=== PATIENT | female | born 1945 | race Caucasian/White ===

== ENCOUNTER 2025-09-13 15:15 | Emergency (ER) | payer MEDICARE, SELFPAY ==
[2025-09-13] VITALS (9 sets, daily range): BP systolic 101–132; BP diastolic 45–77; PULSE 75–81; RESP 15–20; TEMP 36.8–37; O2SAT 97–98; BMI 32.5
--- OUTSIDE RECORDS SUMMARY | 2025-09-13 15:29 | XMS_ITS | Continuity of Care Document ---
Author Organization [facility] - 2 Address [address] [facility] [place] [address] Care Team Providers Care Sofa Inspector Name Role Phone JAM GONZALEZ Primary Care Provider Unavailabl e Assessment No assessment recorded. Plan of Treatment Reminders Order Date Submit Date Provider Last Modified By Organization Details Last Modified Time Details Appointments OFFICE VISIT 2025 10:30A M Dr. Jam Gonzalez Not available Not available Not available MEDICARE ANNUAL WELLNESS 2025 09:00A M Dr. Jam Gonzalez Not available Not available Not available Lab influenz a virus A + B and SARS CoV 2, QL, SHILO+prob e, respirat ory specimen 2024 025 [id number] [facility] - 2, [address] [facility] [address] [facility] [address], [place], [address], 08/16/2025 08:40:58 Referral None recorded . Procedures None recorded . Surgeries None recorded . Imaging XR, chest, 2 view 2024 025 [facility] (Radiology), [address], [place], [address], 08/15/2025 13:24:43 Medication Orders dexameth asone 2 mg tablet 2024 025 [facility], [address] [place], [address], 08/15/2025 12:32:31 doxycycl ine hyclate 100 mg tablet 2024 025 [facility], [address] [place] [address], [id number], 08/29/2025 05:01:42 albutero l sulfate HFA 90 mcg/actu ation aerosol inhaler 2024 025 [facility] [address], [address] [place] [address], [id number], 08/15/2025 12:32:28 Patient TargetsNo targets recorded. Patient InstructionsNo instructions recorded. Reason for Referral None Reported. Results Created Date Observation Date Name Description Value Unit Range Abnormal Flag Note LastModifiedBy Organization Detail LastModifiedTime 08/15/2008/15/2025 influ toby virus A + B and SARS CoV 2, QL, SHILO+p robe, respi rator y speci men influenza virus A + B and sars cov 2 negati ve negati ve Not Available [facility] [address] [facility] [address], [place], [address], 08/15/2025 11:44:52 08/15/20 25 08/15/2025 influ toby virus A + B and SARS CoV 2, QL, SHILO+p robe, respi rator y speci men influenza A negati ve negati ve Not Available [facility] - 2 [address] [address], [place], [address], 08/15/2025 11:44:52 08/15/20 25 08/15/2025 influ toby virus A + B and SARS CoV 2, QL, SHILO+p robe, respi rator y speci men influenza B negati ve negati ve Not Available [facility] - [address] [facility] [address], [place], [address], 08/15/2025 11:44:52 08/15/20 25 08/15/2025 influ toby virus A + B and SARS CoV 2, QL, SHILO+p robe, respi rator y speci men sars antigen negati ve negati ve Not Available [facility] - [address], [place], [address], 08/15/2025 11:44:52 08/15/20 25 08/15/2025 XR, chest , 2 view Exam: 2 view chest radiog raph. [id number]. Indica tion: Shortn ess of air. Acute bronch itis. Compar mamie: Findin gs: PA and latera l views of the chest. The heart and medias tinal contou rs are normal . There is benign calcif ied lymph node in the right hilar region . The lungs are clear. No pleura l effusi on. Impres lokesh: Normal chest radiog raph. Final Signed by: Hipolito Sanabria Signed (Elect ronic Signat ure): 2024 12:22 pm Clinic radiol ogy order, confir m latera lity if needed . [facility] (Radiology) [address], [place], [address], 08/19/2025 11:05:27 Result Notes Documentation Provider Name and Address Organization Details Recorded Time Xr, Chest, 2 View : Exam: 2 view chest radiograph. [id number]. Indication: Shortness of air. Acute bronchitis. Comparison: 09/07/21 Findings: PA and lateral views of the chest. The heart and mediastinal contours are normal. There is benign calcified lymph node in the right hilar region. The lungs are clear. No pleural effusion. Impression: Normal chest radiograph. Final Signed by: Hipolito Bynum Signed (Electronic Signature): 08/15/2025 12:22 pm Clinic radiology order, confirm laterality if needed. [facility] [place] [facility] 08/19/2025 11:05:27 Problems Name Problem SNOMED Code Status Onset Date Resolution Date Notes Provider Name and Address Organization Details Recorded Time Hyperlipi demia 19125344 Active 2016 Not Available [facility] 20:21:56 Hypothyro idism 16551976 Active 2016 Not Available [facility] 1 20:21:56 Diabetes mellitus 65512860 Active 2016 saw eye doctor summer 2017 Not Available [facility] 1 20:21:56 Bilateral cataracts 03958950 Active 2016 2017 surgery Not Available [facility] 1 20:21:56 Screening for malignant neoplasm of breast Active 2016 2020 fall negative Not Available [facility] 1 20:21:56 Screening for malignant neoplasm of colon Active 2016 cologaurd negative 2015 colonosocp y 2018 Not Available [facility] 1 20:21:56 Chest pain 80128496 Active 2016 2014 negative nuclear stress Not Available [facility] 1 20:21:56 Degenerat ion of intervert ebral disc 27277836 Active 2016 lumbar disk mri 2005 Not Available [facility] 1 20:21:56 Essential hypertens ion 23722892 Active 2016 Not Available [facility] 1 20:21:56 Screening for osteoporo sis Active 2017 negative 2013 0.88 , -1.63 in 2019 -2.19 in 2021 Jam Gonzalez M.D. 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 [address] [place], [address] , [facility] 3 10:50:54 Basal cell carcinoma of skin 991630932 Active 2019 removed 2020 Not Available [facility] 1 20:21:56 Squamous cell carcinoma 518954666 Active 2019 derm 2020 Not Available [facility] 1 20:21:56 Restless legs syndrome 47439540 Active 2020 Not Available [facility] 1 20:21:56 History of polyp of colon 724112182 Active 2021 NATY servin, [facility] 2 12:06:47 Bunion 480183956 Active 2023 qualifies for diabetic shoes Jam Gonzalez M.D. [address] [place], [address] , [facility] 4 11:29:19 Notes:chronic eye infection better with steroids nasal congestion coughing start 09/18/22 Problem Notes None recorded. Procedures Surgical History Date Name Laterality Status Provider Name and Address Organization Details Recorded Time 12/02/19 23 COLONOSCOPY (SURG) completed GISSELLE SYKES [address] [place], [address], [facility] 11/30/2022 07:59:14 12/02/19 23 Screening colonoscopy completed Alhaji Hayes MD [address] [place], [address], [facility] 12/01/2022 10:35:47 12/02/19 23 COLONOSCOPY (SURG) completed JEFF BINGHAM [facility] 12/07/2022 10:11:37 07/24/20 19 COLONOSCOPY (SURG) completed SOFIYA JEAN [address], [place], [address], [facility] 07/23/2019 12:32:36 07/24/20 19 COLONOSCOPY W/LESION REMOVAL completed Ramos Parker MD [address] [facility] [address], [place], [address], [facility] 07/24/2019 09:32:00 Tubal Ligation completed NOY BONILLA N [address] [facility] [address], [place], [address], [facility] 12/06/2016 11:06:04 Hemorrhoidectomy completed NOY BOND SON [address] [facility] [address], [place], [place], [address] [place] [address], [facility] 12/06/2016 11:06:11 Knee Surgery completed [facility] 05/25/2023 10:13:00 cholecystectomy completed [place] [address] [facility] [address], [place], [address] [place] [address], [facility] 11/23/2022 10:04:56 Colonoscopy completed [place] [address] [facility] [address], [place], [address] [place] [address], [facility] 11/23/2022 10:05:14 Breast Biopsy completed [facility] 06/07/2025 10:18:50 Xcapsl ctrc rmvl cplx wo ecp completed [facility] 05/25/2023 10:12:16 Imaging Results None recorded. Procedure Notes None recorded. Medical Equipment None Reported. Allergies No known drug allergies Medications Name Sig Start Date Stop Date Status Note LastModified by Organization Details LastModified Time compounde d medicatio n Apply 1-2 grams to the affected area 3-4 times daily 06/04 completed Not Available Not Available Not Available celecoxib 200 mg capsule Take 1 capsule by mouth once daily 2024 active Not Available Not Available Not Avai lable amoxicill in 500 mg capsule Take 1 capsule every 8 hours by oral route. 01/19 completed Not Available Not Available Not Available metformin 500 mg tablet Take 1 tablet twice a day by oral route. 01/15 completed Not Available Not Available Not Available prednison e 10 mg tablet 4 pills for 2 days , 3 pills for 2 days and, 2 pills for 2 days and 1 pill for 2 days 01/08 completed Not Available Not Available Not Available doxycycli ne hyclate 100 mg capsule TAKE ONE CAPSULE BY MOUTH TWO TIMES A DAY FOR INFECTIO N UNTIL ALL ARE GONE 11/11 completed Not Available Not Available Not Available piperacil adriana-tazob actam 40.5 gram intraveno us solution Inject 3.375 g by intraven ous route. 01/09 completed Not Available Not Available Not Available ropinirol e 1 mg tablet Take 1 tablet every day by oral route at bedtime. 02/03 completed as needed Not Available Not Available Not Available albuterol sulfate 2.5 mg/3 mL (0.083 %) solution for nebulizat ion Inhale 3 mL 3 times a day by nebuliza tion route. 05/24 completed Not Available Not Available Not Available azithromy davion 250 mg tablet TAKE 2 TABLETS BY MOUTH TODAY, THEN TAKE 1 TABLET DAILY UNTIL ALL TAKEN 05/15 completed Not Available Not Available Not Available ofloxacin 0.3 % eye drops INSTILL 1 DROP INTO LEFT EYE EVERY NIGHT FOR 1 WEEK, THEN 2 TIMES WEEKLY 05/25 completed Not Available Not Available Not Available fluconazo le 150 mg tablet 03/16 completed Not Available Not Available Not Available valacyclo vir 1 gram tablet Take 1 tablet every 8 hours by oral route. 07/15 completed Not Available Not Available Not Available meloxicam 15 mg tablet Take 1 tablet every day by oral route. 07/15 completed Not Available Not Available Not Available Levaquin 750 mg tablet Take 1 tablet every day by oral route. 05/13 completed Not Available Not Available Not Available famotidin e 40 mg tablet Take 1 tablet every day by oral route as directed for 30 days. 07/15 completed Not Available Not Available Not Available Medrol (Mac) 4 mg tablets in a dose pack take as directed 12/03 completed Not Available Not Available Not Available prednison e 20 mg tablet TAKE 3 TABLETS BY MOUTH ONCE DAILY FOR 5 DAYS 12/03 completed Not Available Not Available Not Available fluoroura cil 5 % topical cream APPLY CREAM TOPICALL Y TO AFFECTED AREA TWICE DAILY FOR 2 WEEKS THEN DISCONTI NUE 03/18 completed Not Available Not Available Not Available metformin 850 mg tablet TAKE 1 TABLET BY MOUTH TWICE DAILY WITH FOOD 11/11 completed holding 07/15/21 due to diarrhea Not Available Not Available Not Available diphenoxy late-atro pine 2.5 mg-0.025 mg tablet TAKE 1 TABLET BY MOUTH THREE TIMES DAILY NEEDED FOR 3 DAYS 06/04 completed Not Available Not Available Not Available Ultram 50 mg tablet Take 1 tablet twice a day by oral route. 10/11 completed Not Available Not Available Not Available potassium chloride ER 10 mEq tablet,ex tended release Take 1 tablet by mouth twice daily 2024 active Not Available Not Available Not Avai lable sulfameth oxazole 800 mg-trimet hoprim 160 mg tablet Take 1 tablet every 12 hours by oral route. 05/25 completed Not Available Not Available Not Available levothyro xine 88 mcg tablet TAKE 1 TABLET BY MOUTH ONCE DAILY IN THE MORNING active Not Available Not Available No t Available prednisol one acetate 1 % eye drops,ann pension 09/15 completed Not Available Not Available Not Available gentamici n 0.3 % eye drops INSTILL 1 DROP INTO AFFECTED EYE(S) BY OPHTHALM IC ROUTE EVERY 4 HOURS 05/24 completed Not Available Not Available Not Available dicyclomi ne 20 mg tablet Take 1 tablet every 8 hours by oral route as needed for 10 days. 07/15 completed Not Available Not Available Not Available Flagyl 500 mg tablet Take 1 tablet 3 times a day by oral route. 05/13 completed Not Available Not Available Not Available hydrocort isone 1 % topical cream APPLY A THIN LAYER TO THE AFFECTED AREA(S) BY TOPICAL ROUTE 2 TIMES PER DAY 06/04 completed Not Available Not Available Not Available dexametha sone 2 mg tablet Take 1 tablet twice a day by oral route. 2024 active Not Available Not Available Not Avai lable oseltamiv ir 75 mg capsule 01/13 completed Not Available Not Available Not Available metformin 1,000 mg tablet Take 1 tablet twice a day by oral route for 90 days. 05/18 completed Not Available Not Available Not Available neomycin- polymyxin -dexameth 3.5 mg/mL-10, 000 unit/mL-0 .1% eye drops INSTILL 1 DROP IN THE LEFT EYE THREE TIMES DAILY FOR 7 DAYS 09/21 completed Not Available Not Available Not Available ropinirol e 0.5 mg tablet TAKE 1/2 TO 1 (ONE-GIOVANY F TO ONE) TABLET BY MOUTH ONCE DAILY AT BEDTIME NEEDED. PRN 08/15/25 active Not Available Not Available No t Available fluoromet holone 0.1 % eye drops,ann pension INSTILL 1 DROP INTO LEFT EYE TWICE A WEEK active Not Available Not Available No t Available polymyxin B sulfate 10,000 unit-trim ethoprim 1 mg/mL eye drops 1 DROP BOTH EYES EVERY DAY 12/01 completed Not Available Not Available Not Available aspirin 81 mg chewable tablet Chew 1 tablet every day by oral route. 2022 active otc Not Available Not Available Not Avai lable hydrocort isone 2.5 % topical cream APPLY CREAM TO AFFECTED AREA TWICE DAILY 06/07 completed Not Available Not Available Not Available lisinopri l 5 mg tablet TAKE 1 TABLET BY MOUTH ONCE DAILY active Not Available Not Available No t Available hydrochlo rothiazid e 25 mg tablet TAKE 1 TABLET BY MOUTH ONCE DAILY active Not Available Not Available No t Available mupirocin 2 % topical ointment APPLY OINTMENT TOPICALL Y TWICE DAILY FOR 10 DAYS 06/07 completed Not Available Not Available Not Available zolpidem 5 mg tablet TAKE 1 TABLET BY MOUTH NEEDED AT BEDTIME 04/05 completed Not Available Not Available Not Available levofloxa davion 500 mg tablet Take 1 tablet every 24 hours by oral route. 01/27 completed Not Available Not Available Not Available oxycodone -acetamin ophen 7.5 mg-325 mg tablet 01/13 completed Not Available Not Available Not Available albuterol sulfate HFA 90 mcg/actua tion aerosol inhaler Inhale 2 puffs every 4 hours by inhalati on route as needed. 2024 active Not Available Not Available Not Avai lable ketoconaz ole 2 % topical cream APPLY TO THE AFFECTED AREA(S) BY TOPICAL ROUTE ONCE DAILY 06/04 completed Not Available Not Available Not Available lisinopri l 2.5 mg tablet Take 1 tablet every day by oral route. 01/13 completed held due to low blood pressure Not Available Not Available Not Available doxycycli ne hyclate 100 mg tablet Take 1 tablet twice a day by oral route for 7 days. 08/29 completed Not Available Not Available Not Available diabetic supplies, miscellan . 09/08 completed Not Available Not Available Not Available moxifloxa davion 0.5 % eye drops one drop in left eye at hs for week and then twice weekly. 10/04 completed Not Available Not Available Not Available metformin ER 750 mg tablet,ex tended release 24 hr TAKE 1 TABLET BY MOUTH ONCE DAILY active Not Available Not Available No t Available rosuvasta tin 10 mg tablet TAKE 1 TABLET BY MOUTH ONCE DAILY active Not Available Not Available No t Available potassium chloride ER 10 mEq tablet,ex tended release(p art/cryst ) TAKE ONE TABLET BY MOUTH TWO TIMES A DAY 07/15 completed Not Available Not Available Not Available Fiber Therapy (methylce llulose) 500 mg tablet Take 2 tablets every day by oral route at bedtime for 30 days. 07/15 completed Not Available Not Available Not Available Polytrim 12/08 completed Not Available Not Available Not Available aspirin 81 mg daily 10/11 completed Not Available Not Available Not Available metronida zole 500 mg1 po Q8 hrs 05/13 completed Not Available Not Available Not Available levothyro xine 0.088 mg daily 03/16 completed Not Available Not Available Not Available hydrochlo rothiazid e 25 mg daily 03/16 completed Not Available Not Available Not Available lisinopri l 5 mg daily 03/16 completed Not Available Not Available Not Available Mucinex 1 PO BID active Not Available Not Felicita ilable Not Available Maalox Advanced 200 mg-200 mg-20 mg/5 mL oral suspensio n Take 20 mL every 6 hours by oral route as needed for 10 days. 07/15 completed Not Available Not Available Not Available GaviLyte- G 236 gram-22.7 4 gram-6.74 gram-5.86 gram oral solution MIX AND TAKE BY MOUTH DIRECTED 09/21 completed Not Available Not Available Not Available Probiotic with Prebiotic 1 billion cell-250 mg capsule Take 1 capsule every day by oral route in the morning for 30 days. 10/11 completed Not Available Not Available Not Available Suprep Bowel Prep Kit 17.5 gram-3.13 gram-1.6 gram oral solution USE DIRECTED 09/21 completed Not Available Not Available Not Available polyethyl clint glycol (bulk) 100 % powder 17 grams prn 07/15 completed Not Available Not Available Not Available potassium chloride ER 20 mEq tablet,ex tended release Take 1 tablet every day by oral route. 09/15 completed Not Available Not Available Not Available Probiotic (S.boular dii) 250 mg capsule Take 1 capsule every day by oral route. 07/15 completed Not Available Not Available Not Available molnupira vir 200 mg capsule (EUA) Take 4 capsules every 12 hours by oral route for 5 days. 11/11 completed Not Available Not Available Not Available Vitals Date Recorded Body height Body mass index (BMI) Body weight Body temperature Heart rate Oxygen saturation Respiratory rate Systolic And Diastolic Provider Name and Address Organization Details Last Updated DateTime 5 165.1 cm 31.3 kg/m2 85461.3 7 g 99.1 [degF] 77 /min 96 % 16 /min 112/58 mm[Hg] Kindra [facility] 5 11:48:19 Social History Question Answer Notes LastModified by Organizat ion Details LastModified Time Tobacco Smoking Status Former Smoker quit in 2019 [facility] servin [facility] 06/07/2025 10:17:15 Do You Have An Advance Directive? Yes Supposed To Bring In Next Time Bring In. [email or web address] Information not available 05/08/2019 What Is Your Level Of Caffeine Consumption? Occasional Teas And Cokes [email or web address] Information not available 11/23/2022 What Is Your Code Status? 0 ALIE Information not available 01/16/2023 Education Post Graduate Informatio n not available 07/05/2019 When Did You Quit Smoking? 1-5yearssincel macochayo [email or web address] Information not available 05/25/2023 Single Or Multi-level Home/work? Single Level Home Information not available 03/16/2018 Live Alone Or With Others? With Others Information not available 03/16/2018 Do You Have Thoughts Of Hurting Yourself Or Others? No Information not available 03/16/2018 Have You Fallen Within The Past Three Months? No Information not available 07/05/2019 Marital Status [email or web address] Informatio n not available 12/06/2016 Do You Have A Medical Power Of Intelligence Officer Basic? Yes Rosina Beals Is Medical [employer] Information not available 05/24/2022 What Was The Date Of Your Most Recent Tobacco Screening? 06/07/2025 Information not available 06/07/2025 What Is Your Current Pack Years? [email or web address] ars Information not available 05/25/2023 Post-op Transportation ? Yes Information not available 07/05/2019 Do You Have Smoke And Carbon Monoxide Detectors In Your Home? Yes [email or web address] Information not available 12/06/2016 At What Age Did You Start Smoking Tobacco? 42 Information not available 03/16/2018 How Much Tobacco Do You Smoke? 1 PPW Information not available 05/25/2023 Has Tobacco Cessation Counseling Been Provided? No Information not available 03/16/2018 Have You Recently Traveled Abroad? No Information not available 07/05/2019 Have You Used IV Drugs? No Information not available 10/11/2019 Using Orthotics? No Information not available 03/16/2018 Sex: Unknown Functional Status Question Answer Note LastModified by Organizat ion Details LastModified Time Do you use any illicit or recreational drugs? No Information not available 03/16/2018 What is your level of alcohol consumption? Occasional Information not available 03/16/2018 Are you able to walk independently without assistance or assistive devices? YESWOREST Information not available 03/16/2018 Are you able to care for yourself independently? Yes Information not available 03/16/2018 What is your exercise level? Moderate Information not available 03/16/2018 Mental Status None recorded. Family History Relationship Description Onset Age of this Age Resolved Age Notes LastModified by Organization Details LastModified Time Father Alzheimer's disease [email or web address] Not available 12/06 11:04:35 Mother Hypertensive disorder [email or web address] Not available 12/06 11:04:48 Mother Family history of stroke [email or web address] Not available 12/06 11:05:02 Medical History Condition Response Coronary Artery Disease N Other N Gout N Blood Diseases N Kidney Stones N Hyperthyroidism N Blood Transfusion N Breast Cancer N Lung Disease N Hypothyroidism Y Depression N COPD N Defects or Inherited Disease N Developmental or Behavioral Disorders N Breast Problem N Difficulty Swallowing N Anesthesia Complications N Anxiety Disorder N Meniere's disease N Muscle, Joint, or Bone Problems N Obesity N Vision or Eye Problems N Arthritis Y Infertility N Polyps N Mental Disorder N Cancer N Varicosities N Stroke N Endometriosis N Bladder or Kidney Problems N High Cholesterol Y Liver Disease N Headaches N Fibromyalgia N Kidney Disease N Allergies/Hayfever N Heart Problems N Ear or Hearing Problems N Hospitalizations N Thyroid Problems N GI Problems N ADD/ADHD N Eating Disorder N Skin Problems Y Anemia N MRSA exposure N Constipation N Mental Illness N Diabetes N Ovarian Cancer N Bedwetting N Seizures/Epilepsy N degenerative disc disease N Tuberculosis N AIDS/HIV N Congestive Heart Failure (CHF) N Eczema N Abuse/Domestic Violence N Diverticulitis N Asthma N Reflux/GERD N Hepatitis N Heart Disease N Pulmonary Embolism N Chronic Ear Infections N Pre-Eclampsia N Hypertension N Chicken Pox N Autism Spectrum Disorder (ASD) N Osteoporosis N Thrombophilias N Gynecological HistoryNo gynecological history recorded. Obstetrics History GPAL:G 0 P 0 0 0 0 Immunizations Vaccine Type Date Status Note Provider Nam e and Address Organization Details Recorded Time Pneumococcal conjugate PCV 13 6 completed Not Available [facility] 08/11/2021 20:21:57 Influenza, adjuvanted, trivalent, PF 5 [facility] 11:24:35 COVID-19, mRNA, LNP-S, PF, 100 mcg/0.5mL dose or 50 mcg/0.25mL dose 1 completed Not Available [facility] 08/11/2021 20:21:57 COVID-19, mRNA, LNP-S, PF, 100 mcg/0.5mL dose or 50 mcg/0.25mL dose 1 completed Not Available [facility] 08/11/2021 20:21:57 zoster recombinant 3 completed [facility]ra servin, [facility] 02/09/2023 09:49:46 influenza, unspecified formulation 3 completed [facility]ra servin, [facility] 07/04/2023 09:00:55 RSV, recombinant, protein subunit RSVpreF, adjuvant reconstituted, 0.5 mL, PF 4 completed [facility] servin, [facility] 06/19/2024 17:02:28 Influenza, adjuvanted, trivalent, PF 4 completed [facility], [facility] [facility] 06/19/2024 17:03:25 Influenza, split virus, quadrivalent, preservative 6 completed Not Available [facility] 08/11/2021 20:21:57 pneumococcal polysaccharide PPV23 9 completed Not Available [facility] 10/13/2019 02:51:32 Past Encounters Encounter ID Performer Location Encounter Start Date Encounter Closed Date Diagnosis/Indication Diagnosis SNOMED-CT Code Diagnosis ICD10 Code Diagnosis IMO Codes Diagnosis Note [id number] Jam Gonzalez M.D. [facility] - [address] [place], [place] [id number] 08/15/2025 11:29:44 08/15/2025 12:32:51 Cough 25792334 R05.9 [id number] Acute bronchitis 0090252 2 J20.9 [id number] patient has 2 days of symptoms with multiple sick contacts I am going to get a chest x-ray on her COVID and flu are negative script for albuterol low-dose dexamethas one and doxycyclin e Health Concerns Section Related Observation LastModified by Organization Detai ls LastModified Time None Recorded Concern Status LastModified by Organization Details LastModified Time None Recorded Payers Encounter Date Sequence Insurance Name Policy Number Policy Wick Covered Member ID Wick Member ID Guarantor Name 08/15/2025 1 [facility] (MEDICARE REPLACEMENT/A DVANTAGE - HMO) Yesy Santana [id number] Yesy Santana Notes Date Note Type Note Provider Name and Address Organization Details Recorded Time 08/15/2025 text/html Upper Respirator y SymptomsReported by Patient CoughReported by Patient this is a 79-year-old female with diabetes who presents with cough for 2 days with overt wheezing some production at times she is not particularly short of breath no fever she has had multiple sick contacts and her COVID and flu are negative she said she took a grandchild to the doctor who had a respiratory infection they did not give a specific diagnosis her oxygen saturation looks good this time Jam Gonzalez M.D. [address], [place], [id number], [facility] 08/15/2025 12:32:30 OBGyn Episode No OBEpisode recorded.
--- OUTSIDE RECORDS SUMMARY | 2025-09-13 15:29 | XMS_ITS | Data Portability ---
Author Organization [facility] Address [address] [place] [address] Care Team Providers Care Test Man Name Role Phone JAM GONZALEZ Primary Care Provider Unavailabl e Assessment Encounter Date Assessment Date Assessment LastModified by Organization Details LastModified Time 06/07/2025 06/07/2025 Patient presente d to office today for their Medicare Annual Wellness Visit. Education was provided on healthy nutrition, including a diet rich in fruits and vegetables, minimizing simple carbohydrates, salt, and saturated fats. Encouraged regular cardiovascular exercise such as walking at least 30 minutes daily, 5 times per week. Emphasized preventive health measures and educated pt on fall prevention and community-based lifestyle interventions to help reduce health risks and promote healthy living. Not available 05/30/2025 11:53:57 Plan of Treatment Reminders Order Date Submit [...] SHILO+prob e, respirat ory specimen 2024 025 [email or web address] [facility] - 2, [address], [place], [address], 08/16/2025 08:40:58 CMP, serum or plasma 2024 025 [facility], [address], [place], [address], 06/07/2025 12:39:03 HbA1c (hemoglo bin A1c), blood 2024 025 [facility], [address] [place] [address] [place], [address], 06/07/2025 12:45:26 microalb umin, urine 2024 025 [facility], [address] [place], [address], 06/07/2025 12:48:40 TSH, serum or plasma 2024 025 [facility], [address] [place], [address], 06/07/2025 13:15:59 T4, free, serum 2024 025 [facility], [address] [place], [address], 06/07/2025 13:43:59 HbA1c (hemoglo bin A1c), blood 2024 025 [facility], [address] [place], [address], 03/18/2025 14:09:42 CMP, serum or plasma 2024 025 [facility], [address] [place], [address], 03/18/2025 13:23:16 HbA1c (hemoglo bin A1c), blood 2024 025 [facility], [address] [place], [address], 12/03/2024 14:09:05 CBC w/ auto diff 2024 025 [facility], [address] [place], [address], 12/03/2024 13:30:38 TSH, serum or plasma 2024 [facility], [address] [place], [address], 12/03/2024 14:21:00 T4, free, serum 2024 [facility], [address] [facility] [place], [address], 12/03/2024 14:09:35 lipid panel, serum 2024 [facility], [address], [address], 12/03/2024 13:53:21 CMP, serum or plasma 2024 [facility], [address] [facility] [place], [address], 12/03/2024 13:53:15 Referral None recorded . Procedures None recorded . Surgeries None recorded . Imaging XR, chest, 2 view 2024 [facility] (Radiology), [facility] [address], [address], 08/15/2025 13:24:43 Medication Orders dexameth asone 2 mg tablet 2024 [facility], [address] [place] [address], [address], 08/15/2025 12:32:31 doxycycl ine hyclate 100 mg tablet 2024 [facility] [address], [address] [place] [address], [address], 08/29/2025 05:01:42 albutero l sulfate HFA 90 mcg/actu ation aerosol inhaler 2024 025 [facility], [address] [place] [address], [address], 08/15/2025 12:32:28 rosuvast atin 10 mg tablet 2024 025 [facility], [address] [place] [address], [address], 06/07/2025 11:19:40 ropiniro le 0.5 mg tablet [email or web address] [facility], [address] [place] [address], [address], 08/15/2025 11:45:57 Patient TargetsNo targets recorded. Patient InstructionsNo instructions recorded. Reason for Referral None Reported. Results Created Date Observation Date Name Description Value Unit Range Abnormal Flag Note LastModifiedBy Organization Detail LastModifiedTime 12/04/1912/03/2024 CBC W/ DIFF instr WBC 7 Not Available [facility] [address] [facility] [address], [place], [address], 12/03/2024 13:30:38 12/04/19 25 12/03/2024 CBC W/ DIFF WBC 7.35 x10 3.60-1 0.60 normal Not Available [facility] [address], [place], [address], 12/03/2024 13:30:38 12/04/19 25 12/03/2024 CBC W/ DIFF RBC 3.60 x10 3.80-5 .20 low Not Available [facility] [address], [place], [address], 12/03/2024 13:30:38 12/04/19 25 12/03/2024 CBC W/ DIFF HGB 12.2 g/dL 12.0-1 5.0 normal Not Available [facility] [address] [place], [address], 12/03/2024 13:30:38 12/04/19 25 12/03/2024 CBC W/ DIFF HCT 35.6 % 35.0-4 9.0 normal Not Available [facility] [address] [place], [address], 12/03/2024 13:30:38 12/04/19 25 12/03/2024 CBC W/ DIFF RDW 13.9 % 11.5-1 4.5 normal Not Available [facility] [place], [address], 12/03/2024 13:30:38 12/04/19 25 12/03/2024 CBC W/ DIFF MCH 33.9 pg 26.0-3 4.0 normal Not Available [facility] [place], [address], 12/03/2024 13:30:38 12/04/19 25 12/03/2024 CBC W/ DIFF MCHC 34.3 g/dL 32.0-3 6.0 normal Not Available [facility] [place], [address], 12/03/2024 13:30:38 12/04/19 25 12/03/2024 CBC W/ DIFF MPV 10.2 fL 8.4-12 .4 normal Not Available [facility] [place], [address], 12/03/2024 13:30:38 12/04/19 25 12/03/2024 CBC W/ DIFF MCV 99 fL 80-100 normal Not Available [facility] [place], [address], 12/03/2024 13:30:38 12/04/19 25 12/03/2024 CBC W/ DIFF platelets 217 x10 150-45 0 normal Not Available [facility] [address] [place], [address], 12/03/2024 13:30:38 12/04/19 25 12/03/2024 CBC W/ DIFF RDW-CV 13.9 % 11.5-1 4.5 normal Not Available [facility] [address] [place], [address], 12/03/2024 13:30:38 12/04/19 25 12/03/2024 CBC W/ DIFF RDW-SD 46.0 fL 39.0-4 6.0 normal Not Available [facility] [address] [place], [address], 12/03/2024 13:30:38 12/04/19 25 12/03/2024 AUTO DIFF neutro auto 32 % 50-70 low Not Available [facility] [address] [place], [address], 12/03/2024 13:30:40 12/04/19 25 12/03/2024 AUTO DIFF lymph auto 58 % 18-42 high Not Available [facility] [address] [place], [address], 12/03/2024 13:30:40 12/04/19 25 12/03/2024 AUTO DIFF mono auto 7 % 2-11 normal Not Available [facility] [address] [place], [address], 12/03/2024 13:30:40 12/04/19 25 12/03/2024 AUTO DIFF eos, auto 2 % 1-3 normal Not Available [facility] [address] [place], [address], 12/03/2024 13:30:40 12/04/19 25 12/03/2024 AUTO DIFF basophil auto 0 % 0-2 normal Not Available [facility] [address] [place], [address], 12/03/2024 13:30:40 12/04/19 25 12/03/2024 AUTO DIFF neutro absolute 2.4 x10 1.7-7. 5 normal Not Available [facility] [address] [place], [address], 12/03/2024 13:30:40 12/04/19 25 12/03/2024 AUTO DIFF lymph absolute 4.3 x10 1.0-3. 2 high Not Available [facility] [address] [place], [address], 12/03/2024 13:30:40 12/04/19 25 12/03/2024 AUTO DIFF mono absolute 0.5 x10 0.1-1. 3 normal Not Available [facility] [address] [place], [address], 12/03/2024 13:30:40 12/04/19 25 12/03/2024 AUTO DIFF eos absolute 0.1 x10 0.0-0. 3 normal Not Available [facility] [address] [place], [address], 12/03/2024 13:30:40 12/04/19 25 12/03/2024 AUTO DIFF baso absolute 0.0 x10 0.0-0. 2 normal Not Available [facility] [address] [place], [address], 12/03/2024 13:30:40 12/04/19 25 12/03/2024 AUTO DIFF imm gran auto 0 % 0-1 normal Not Available [facility] [address] [address], [address], 12/03/2024 13:30:40 12/04/19 25 12/03/2024 AUTO DIFF imm gran absolute 0.02 x10 0.00-0 .09 normal Not Available [facility] [address] [place], [address], 12/03/2024 13:30:40 12/04/19 25 12/03/2024 CMP sodium level 140 mmol/ L 137-14 5 normal Not Available [facility] [address] [place], [address], 12/03/2024 13:53:23 12/04/19 25 12/03/2024 CMP potassium level 4.7 mmol/ L 3.5-5. 1 normal Not Available [facility] [address] [place], [address], 12/03/2024 13:53:23 12/04/19 25 12/03/2024 CMP chloride level 103 mmol/ L 98-107 normal IT HAS BEEN DETER MINED IF TRIGL YCERI YUNI ARE REPOR KAYA AT >= 600mg /dL, THERE MAY BE A POSIT JAN BIAS OF APPRO XIMAT HARLEY 2.1 mmol/ L IN THE CHLOR ALLI RESUL T. Not Available [facility] [address] [place], [address], 12/03/2024 13:53:23 12/04/19 25 12/03/2024 CMP CO2 33 mmol/ L 22-30 high Not Available [facility] [address] [place], [address], 12/03/2024 13:53:23 12/04/19 25 12/03/2024 CMP alk phos 94 unit/ L 38-126 normal Not Available [facility] [address] [place], [address], 12/03/2024 13:53:23 12/04/19 25 12/03/2024 CMP AST 22 unit/ L 14-36 normal Not Available [facility] [address] [place], [address], 12/03/2024 13:53:23 12/04/19 25 12/03/2024 CMP ALT 18 unit/ L <=35 normal Not Available [facility] [address] [place], [address], 12/03/2024 13:53:23 12/04/19 25 12/03/2024 CMP BUN 19 mg/dL 7-17 high Not Available [facility] [place], [address], 12/03/2024 13:53:23 12/04/19 25 12/03/2024 CMP glucose level 177 mg/dL 74-106 high Not Available [facility] [address] [place], [address], 12/03/2024 13:53:23 12/04/19 25 12/03/2024 CMP creatinine level 0.80 mg/dL 0.52-1 .04 normal Not Available [facility] [place], [address], 12/03/2024 13:53:23 12/04/19 25 12/03/2024 CMP calcium level 9.2 mg/dL 8.4-10 .2 normal Not Available [facility] [place], [address], 12/03/2024 13:53:23 12/04/19 25 12/03/2024 CMP protein total 6.2 g/dL 6.3-8. 2 low Not Available [facility] [place], [address], 12/03/2024 13:53:23 12/04/19 25 12/03/2024 CMP albumin level 3.7 g/dL 3.5-5. 0 normal Not Available [facility] [address], [place], [address], 12/03/2024 13:53:23 12/04/19 25 12/03/2024 CMP bilirubin total 0.5 mg/dL 0.2-1. 3 normal Not Available [facility] [address], [place], [address], 12/03/2024 13:53:23 12/04/19 25 12/03/2024 CMP anion gap 9 mmol/ L 7-16 normal Not Available [facility] [address] [place], [address], 12/03/2024 13:53:23 12/04/19 25 12/03/2024 CMP eGFR aa 84 > 90 DEAN L OR ELEVA KAYA 60-89 MILDL Y DEPRE SSED 30-59 MODER ATELY DEPRE SSED 15-30 SEVER LY DEPRE SSED <15 KIDNE Y FAILU RE NATIO NAL KIDNE Y FOUND ATION , K/DO QI CLINI NICHOLAS PRACT ICE GUIDE LINES FOR CHRON IC KIDNE Y DISEA SE. Not Available [facility] [address], [place], [address], 12/03/2024 13:53:23 12/04/19 25 12/03/2024 CMP eGFR non-aa 69 > 90 DEAN L OR ELEVA KAYA 60-89 MILDL Y DEPRE SSED 30-59 MODER ATELY DEPRE SSED 15-30 SEVER LY DEPRE SSED <15 KIDNE Y FAILU RE THE GFR CALCU LATIO N IS BASED ON THE MDRD EQUAT ION Not Available [facility] [address] [place], [address], 12/03/2024 13:53:23 12/04/19 25 12/03/2024 CMP BUN/creat ratio 23.8 mg/dL 10.5-2 2.8 high Not Available [facility] [address], [place], [address], 12/03/2024 13:53:23 12/04/19 25 12/03/2024 CMP globulin 2.5 g/dL 2.0-3. 5 normal Not Available [facility] [address], [place], [address], 12/03/2024 13:53:23 12/04/19 25 12/03/2024 CMP A/G ratio 1.5 ratio 1.1-2. 5 normal Not Available [facility] [address], [place], [address], 12/03/2024 13:53:23 12/04/19 25 12/03/2024 CMP osmolality serum 277 mOsm/ kg 275-29 5 normal Calcu lated Serum Osmol ality Not Available [facility] [address], [place], [address], 12/03/2024 13:53:23 12/04/19 25 12/03/2024 LIPID PNL cholesterol total 170 mg/dL <=200 normal NEHA ABLE <200 mg/dL BORDE RLINE HIGH 200-2 39 mg/dL HIGH >240 mg/dL Not Available [facility] [address] [place], [address], 12/03/2024 13:53:21 12/04/19 25 12/03/2024 LIPID PNL triglyceride s 61 mg/dL <=149 normal Not Available [facility] [address] [place], [address], 12/03/2024 13:53:21 12/04/19 25 12/03/2024 LIPID PNL HDL 72 mg/dL 40-60 high Not Available [facility] [address] [place], [address], 12/03/2024 13:53:21 12/04/19 25 12/03/2024 LIPID PNL LDL 86 mg/dL <=100 normal <100 mg/dL - optim al Not Available [facility] [address] [place], [address], 12/03/2024 13:53:21 12/04/19 25 12/03/2024 LIPID PNL chol/HDL 2.36 ratio CHOL/ HDL RATIO : IDEAL RATIO IS A < 3.5:1 Not Available [facility] [address] [place], [address], 12/03/2024 13:53:21 12/04/19 25 12/03/2024 LIPID PNL VLDL 12 mg/dL 2-30 normal Not Available [facility] [address] [place], [address], 12/03/2024 13:53:21 12/04/1912/03/2024 HGB A1C hemoglobin A1C 9.4 % <=5.7 high Non-D iabet ic: <5.7 NGSP (% A1C) Pre-D iabet ic: 5.7-6 .4 NGSP (% A1C) Diabe tic: > 6.5 NGSP (% A1C) Not Available [facility] [address] [place], [address], 12/03/2024 14:09:05 12/04/19 25 12/03/2024 FREE T4 T4 free 0.89 NG/dL 0.78-2 .19 normal Not Available [facility] [address] [place], [address], 12/03/2024 14:09:35 12/04/19 25 12/03/2024 TSH TSH 3.78 mintl unit/ L 0.47-4 .68 normal [facility]I NICHOLAS DIAGN OSTIC S HAS DETER MINED THAT PATIE JOSE PORTER G BIOTI N SUPPL EMWILLIE S COULD SOCRATES Albrecht HAVE BIASE D SHANNON MEDINA TS. Not Available [facility] [address], [place], [address], 12/03/2024 14:21:00 03/18/20 25 03/18/2025 CMP sodium level 138 mmol/ L 137-14 5 normal Not Available [facility] [address] [place], [address], 03/18/2025 13:23:18 03/18/20 25 03/18/2025 CMP potassium level 3.9 mmol/ L 3.5-5. 1 normal Not Available [facility] [address] [place], [address], 03/18/2025 13:23:18 03/18/20 25 03/18/2025 CMP chloride level 102 mmol/ L 98-107 normal IT HAS BEEN DETER MINED IF TRIGL YCERI YUNI ARE REPOR KAYA AT >= 600mg /dL, THERE MAY BE A POSIT JAN BIAS OF APPRO XIMAT HARLEY 2.1 mmol/ L IN THE CHLOR ALLI RESUL T. Not Available [facility] [address] [place], [address], 03/18/2025 13:23:18 03/18/20 25 03/18/2025 CMP CO2 27 mmol/ L 22-30 normal Not Available [facility] [address] [place], [address], 03/18/2025 13:23:18 03/18/20 25 03/18/2025 CMP alk phos 75 unit/ L 38-126 normal Not Available [facility] [address] [place], [address], 03/18/2025 13:23:18 03/18/20 25 03/18/2025 CMP AST 30 unit/ L 14-36 normal Not Available [facility] [address] [place], [address], 03/18/2025 13:23:18 03/18/20 25 03/18/2025 CMP ALT 23 unit/ L <=35 normal Not Available [facility] [address] [place], [address], 03/18/2025 13:23:18 03/18/20 25 03/18/2025 CMP BUN 15 mg/dL 7-17 normal Not Available [facility] [address] [place], [address], 03/18/2025 13:23:18 03/18/20 25 03/18/2025 CMP glucose level 134 mg/dL 74-106 high Not Available [facility] [address] [place], [address], 03/18/2025 13:23:18 03/18/20 25 03/18/2025 CMP creatinine level 0.60 mg/dL 0.52-1 .04 normal Not Available [facility] [address] [place], [address], 03/18/2025 13:23:18 03/18/20 25 03/18/2025 CMP calcium level 9.1 mg/dL 8.4-10 .2 normal Not Available [facility] [address] [place], [address], 03/18/2025 13:23:18 03/18/20 25 03/18/2025 CMP protein total 6.6 g/dL 6.3-8. 2 normal Not Available [facility] [address] [place], [address], 03/18/2025 13:23:18 03/18/20 25 03/18/2025 CMP albumin level 3.8 g/dL 3.5-5. 0 normal Not Available [facility] [address] [place], [address], 03/18/2025 13:23:18 03/18/20 25 03/18/2025 CMP bilirubin total 1.1 mg/dL 0.2-1. 3 normal Not Available [facility] [address], [place], [address], 03/18/2025 13:23:18 03/18/20 25 03/18/2025 CMP anion gap 13 mmol/ L 7-16 normal Not Available [facility] [address] [place], [address], 03/18/2025 13:23:18 03/18/20 25 03/18/2025 CMP eGFR aa 117 > 90 DEAN L OR ELEVA KAYA 60-89 MILDL Y DEPRE SSED 30-59 MODER ATELY DEPRE SSED 15-30 SEVER LY DEPRE SSED <15 KIDNE Y FAILU RE NATIO NAL KIDNE Y FOUND ATION , K/DO QI CLINI NICHOLAS PRACT ICE GUIDE LINES FOR CHRON IC KIDNE Y DISEA SE. Not Available [facility] [address] [place], [address], 03/18/2025 13:23:18 03/18/20 25 03/18/2025 CMP eGFR non-aa 96 > 90 DEAN L OR ELEVA KAYA 60-89 MILDL Y DEPRE SSED 30-59 MODER ATELY DEPRE SSED 15-30 SEVER LY DEPRE SSED <15 KIDNE Y FAILU RE THE GFR CALCU LATIO N IS BASED ON THE MDRD EQUAT ION Not Available [facility] [address] [place], [address], 03/18/2025 13:23:18 03/18/20 25 03/18/2025 CMP BUN/creat ratio 25.0 mg/dL 10.5-2 2.8 high Not Available [facility] [address] [place], [address], 03/18/2025 13:23:18 03/18/20 25 03/18/2025 CMP globulin 2.8 g/dL 2.0-3. 5 normal Not Available [facility] [address] [place], [address], 03/18/2025 13:23:18 03/18/20 25 03/18/2025 CMP A/G ratio 1.4 ratio 1.1-2. 5 normal Not Available [facility] [address], [place], [address], 03/18/2025 13:23:18 03/18/20 25 03/18/2025 CMP osmolality serum 269 mOsm/ kg 275-29 5 low Calcu lated Serum Osmol ality Not Available [facility] [address] [place], [address], 03/18/2025 13:23:18 03/18/20 25 03/18/2025 HGB A1C hemoglobin A1C 7.7 % <=5.7 high Non-D iabet ic: <5.7 NGSP (% A1C) Pre-D iabet ic: 5.7-6 .4 NGSP (% A1C) Diabe tic: > 6.5 NGSP (% A1C) Not Available [facility] [address] [place], [address], 03/18/2025 14:09:42 06/07/2006/07/2025 CMP sodium level 135 mmol/ L 137-14 5 low Not Available [facility] [address] [place], [address], 06/07/2025 12:39:05 06/07/20 25 06/07/2025 CMP potassium level 4.4 mmol/ L 3.5-5. 1 normal Not Available [facility] [address] [place], [address], 06/07/2025 12:39:05 06/07/2006/07/2025 CMP chloride level 98 mmol/ L 98-107 normal IT HAS BEEN DETER MINED IF TRIGL YCERI YUNI ARE REPOR KAAY AT >= 600mg /dL, THERE MAY BE A POSIT JAN BIAS OF APPRO XIMAT HARLEY 2.1 mmol/ L IN THE CHLOR ALLI RESUL T. Not Available [facility] [address] [place], [address], 06/07/2025 12:39:05 06/07/2006/07/2025 CMP CO2 31 mmol/ L 22-30 high Not Available [facility] [address] [place], [address], 06/07/2025 12:39:05 06/07/2006/07/2025 CMP alk phos 73 unit/ L 38-126 normal Not Available [facility] [address] [place], [address], 06/07/2025 12:39:05 06/07/2006/07/2025 CMP AST 25 unit/ L 14-36 normal Not Available [facility] [address] [place], [address], 06/07/2025 12:39:05 06/07/20 25 06/07/2025 CMP ALT 20 unit/ L <=35 normal Not Available [facility] [address] [place], [address], 06/07/2025 12:39:05 06/07/2006/07/2025 CMP BUN 17 mg/dL 7-17 normal Not Available [facility] [address] [place], [address], 06/07/2025 12:39:05 06/07/2006/07/2025 CMP glucose level 253 mg/dL 74-106 high Not Available [facility] [address] [place], [address], 06/07/2025 12:39:05 06/07/2006/07/2025 CMP creatinine level 0.70 mg/dL 0.52-1 .04 normal Not Available [facility] [address] [place], [address], 06/07/2025 12:39:05 06/07/2006/07/2025 CMP calcium level 9.1 mg/dL 8.4-10 .2 normal Not Available [facility] [address] [place], [address], 06/07/2025 12:39:05 06/07/2006/07/2025 CMP protein total 6.2 g/dL 6.3-8. 2 low Not Available [facility] [address] [place], [address], 06/07/2025 12:39:05 06/07/2006/07/2025 CMP albumin level 3.7 g/dL 3.5-5. 0 normal Not Available [facility] [address] [place], [address], 06/07/2025 12:39:05 06/07/2006/07/2025 CMP bilirubin total 0.9 mg/dL 0.2-1. 3 normal Not Available [facility] [place], [address], 06/07/2025 12:39:05 06/07/2006/07/2025 CMP anion gap 10 mmol/ L 7-16 normal Not Available [facility] [address] [place], [address], 06/07/2025 12:39:05 06/07/2006/07/2025 CMP eGFR aa 98 > 90 DEAN L OR ELEVA KAYA 60-89 MILDL Y DEPRE SSED 30-59 MODER ATELY DEPRE SSED 15-30 SEVER LY DEPRE SSED <15 KIDNE Y FAILU RE NATIO NAL KIDNE Y FOUND ATION , K/DO QI CLINI NICHOLAS PRACT ICE GUIDE LINES FOR CHRON IC KIDNE Y DISEA SE. Not Available [facility] [address] [place], [address], 06/07/2025 12:39:05 06/07/2006/07/2025 CMP eGFR non-aa 81 > 90 DEAN L OR ELEVA KAYA 60-89 MILDL Y DEPRE SSED 30-59 MODER ATELY DEPRE SSED 15-30 SEVER LY DEPRE SSED <15 KIDNE Y FAILU RE THE GFR CALCU LATIO N IS BASED ON THE MDRD EQUAT ION Not Available [facility] [address] [place], [address], 06/07/2025 12:39:05 06/07/2006/07/2025 CMP BUN/creat ratio 24.3 mg/dL 10.5-2 2.8 high Not Available [facility] [address] [place], [address], 06/07/2025 12:39:05 06/07/2006/07/2025 CMP globulin 2.5 g/dL 2.0-3. 5 normal Not Available [facility] [address] [place], [address], 06/07/2025 12:39:05 06/07/2006/07/2025 CMP A/G ratio 1.5 ratio 1.1-2. 5 normal Not Available [facility] [address] [place], [address], 06/07/2025 12:39:05 06/07/2006/07/2025 CMP osmolality serum 271 mOsm/ kg 275-29 5 low Calcu lated Serum Osmol ality Not Available [facility] [address] [place], [address], 06/07/2025 12:39:05 06/07/2006/07/2025 HGB A1C hemoglobin A1C 7.2 % <=5.7 high Non-D iabet ic: <5.7 NGSP (% A1C) Pre-D iabet ic: 5.7-6 .4 NGSP (% A1C) Diabe tic: > 6.5 NGSP (% A1C) Not Available [facility] [address] [place], [address], 06/07/2025 12:45:26 06/07/2006/07/2025 U MICRO ALB U microalb <6.0 mg/L <=16.7 normal Not Available [facility] [address] [place], [address], 06/07/2025 12:48:40 06/07/2006/07/2025 TSH TSH 4.80 mintl unit/ L 0.47-4 .68 high [facility] HAS DETER MINED THAT PATIE NTS TAKIN G BIOTI N SUPPL EMENT S COULD SOCRATES COLON Y HAVE NATALIE ORTEGA E CAROL TS. Not Available [facility] [address] [place], [address], 06/07/2025 13:15:59 06/07/2006/07/2025 FREE T4 T4 free 0.91 NG/dL 0.78-2 .19 normal Not Available [facility] [address] [place], [address], 06/07/2025 13:43:59 08/15/20 25 08/15/2025 influ toby virus A + B and SARS CoV 2, QL, SHILO+p robe, respi rator y speci men influenza virus A + B and sars cov 2 negati ve negati ve Not Available [facility] - [address], [place], [address], 08/15/2025 11:44:52 08/15/20 25 08/15/2025 influ toby virus A + B and SARS CoV 2, QL, SHILO+p robe, respi rator y speci men influenza A negati ve negati ve Not Available [facility] - [address], [place], [address], 08/15/2025 11:44:52 08/15/20 25 08/15/2025 influ toby virus A + B and SARS CoV 2, QL, SHILO+p robe, respi rator y speci men influenza B negati ve negati ve Not Available [facility] - [address], [place], [address], 08/15/2025 11:44:52 08/15/20 25 08/15/2025 influ toby virus A + B and SARS CoV 2, QL, SHILO+p robe, respi rator y speci men sars antigen negati ve negati ve Not Available [facility] - [address], [place], [address], 08/15/2025 11:44:52 08/15/20 25 08/15/2025 XR, chest , 2 view Exam: 2 view chest radiog raph. [id number]. Indica tion: Shortn ess of air. Acute [...] Final Signed by: Hipolito Sanabria Signed (Elect alison Signat ure): 2024 12:22 pm Clinic radiol ogy order, confir m latera lity if needed . [facility] (Radiology) [address], [place], [address], 08/19/2025 11:05:27 Result Notes Documentation Provider Name and Address Organization Details Recorded Time Xr, Chest, 2 View : Exam: 2 view chest radiograph. [id number]. Indication: Shortness of air. Acute bronchitis. Comparison: [...] order, confirm laterality if needed. Kindra servin [facility] 08/19/2025 11:05:27 Problems Name Problem SNOMED Code Status Onset Date Resolution Date Notes Provider Name and Address Organization Details Recorded Time Hyperlipi demia 88956244 Active 2016 Not Available [facility] 1 20:21:56 Hypothyro idism 59337133 Active 2016 Not Available [facility] 20:21:56 Diabetes mellitus 36921986 Active 2016 saw eye doctor summer 2017 Not Available [facility] 1 20:21:56 Bilateral cataracts 11794438 Active 2016 2017 surgery Not Available [facility] 20:21:56 Screening for malignant neoplasm of breast Active 2016 2020 fall negative Not Available [facility] 20:21:56 Screening for malignant neoplasm of colon Active 2016 cologaurd negative 2016 colonosocp y 2019 Not Available [facility] 20:21:56 Chest pain 23811387 Active 2016 2014 negative nuclear stress Not Available [facility] 1 20:21:56 Degenerat ion of intervert ebral disc 79784951 Active 2016 lumbar disk mri 2006 Not Available [facility] 1 20:21:56 Essential hypertens ion 79676638 Active 2016 Not Available [facility] 1 20:21:56 Screening for osteoporo sis Active 2017 negative 2014 0.88 , -1.63 in 2019 -2.19 in 2021 Jam Gonzalez M.D. 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 [address], [place], [address] , [facility] 3 10:50:54 Basal cell carcinoma of skin 500860313 Active 2019 removed 2020 Not Available [facility] 1 20:21:56 Squamous cell carcinoma 218219876 Active 2019 derm 2020 Not Available [facility] 1 20:21:56 Restless legs syndrome 97969760 Active 2020 Not Available [facility] 1 20:21:56 History of polyp of colon 345294708 Active 2021 NATY servin, [facility] 2 12:06:47 Kalin 795928232 Active 2023 qualifies for diabetic nidia Gonzalez M.D. [address], [address] , [facility] 4 11:29:19 Notes:chronic eye infection better with steroids nasal congestion coughing start 09/18/22 Problem Notes None recorded. Procedures Surgical History Date Name Laterality Status Provider Name and Address Organization Details Recorded Time 12/02/19 23 COLONOSCOPY (SURG) completed GISSELLE CEVALLOSANDREW [address], [place], [address], [facility] 11/30/2022 07:59:14 12/02/19 23 Screening colonoscopy completed Alhaji Hayes MD [address] [place], [address], [facility] 12/01/2022 10:35:47 12/02/19 23 COLONOSCOPY (SURG) completed JEFF BINGHAM [facility] 12/07/2022 10:11:37 07/24/20 19 COLONOSCOPY (SURG) completed SOFIYA JEAN [address], [place], [address], [facility] 07/23/2019 12:32:36 07/24/20 19 COLONOSCOPY W/LESION REMOVAL completed Ramos Parker MD [address] [place], [address], [facility] 07/24/2019 09:32:00 Tubal Ligation completed NOY BONILLA N [address] [place], [address], [facility] 12/06/2016 11:06:04 Hemorrhoidectomy completed NOY BOND SON [address], [place], [address], [facility] 12/06/2016 11:06:11 Knee Surgery completed Kindra Stinson [facility] 05/25/2023 10:13:00 cholecystectomy completed [address], [place], [address], [facility] 11/23/2022 10:04:56 Colonoscopy completed [address], [place], [address], [facility] 11/23/2022 10:05:14 Breast Biopsy completed [facility] 06/07/2025 10:18:50 Xcapsl ctrc rmvl cplx wo ecp completed [facility] 05/25/2023 10:12:16 Imaging Results None recorded. [...] Not Available Not Available Not Available azithromy davino 250 mg tablet TAKE 2 TABLETS BY [...] Details Last Updated DateTime 5 165.1 cm 31.8 kg/m2 51867.1 4 g 97.7 [degF] 73 /min 95 % 15 /min 102/68 mm[Hg] [facility] 5 10:09:25 Date Recorded Body height Body mass index (BMI) Body weight Heart rate Oxygen saturation Respiratory rate Systolic And Diastolic Provider Name and Address Organization Details Last Updated DateTime 5 165.1 cm 31.1 kg/m2 46852.7 7 g 83 /min 97 % 17 /min 110/78 mm[Hg] [facility] 5 12:26:46 Date Recorded Body height Body mass index (BMI) Body weight Body temperature Heart rate Oxygen saturation Respiratory rate Systolic And Diastolic Provider Name and Address Organization Details Last Updated DateTime 5 165.1 cm 30.8 kg/m2 71488.5 9 g 98.1 [degF] 88 /min 96 % 15 /min 110/76 mm[Hg] [facility] 5 11:14:32 Date Recorded Body height Body mass index (BMI) Body weight Heart rate Oxygen saturation Systolic And Diastolic Provider Name and Address Organization Details Last Updated DateTime 5 165.1 cm 31.5 kg/m2 56814.6 8 g 77 /min 97 % 112/68 mm[Hg] [facility] 5 10:11:08 Date Recorded Body height Body mass index (BMI) Body weight Body temperature Heart rate Oxygen saturation Respiratory rate Systolic And Diastolic Provider Name and Address Organization Details Last Updated DateTime 5 165.1 cm 31.3 kg/m2 03163.3 7 g 99.1 [degF] 77 /min 96 % 16 /min 112/58 mm[Hg] Kindra Hoang [facility] 5 11:48:19 Social History Question Answer Notes LastModified by Organizat ion Details LastModified Time Tobacco Smoking Status Former Smoker quit in 2019 [facility] 06/07/2025 10:17:15 Do You Have An Advance Directive? Yes Supposed To Bring In Next Time Bring In. [email or web address] Information not available 05/08/2019 What Is Your Level Of Caffeine Consumption? Occasional Teas And Cokes [email or web address] Information not available 11/23/2022 What Is Your Code Status? 0 ALIE Information not available 01/16/2023 Education Post Graduate Informatio n not available 07/05/2019 When Did You Quit Smoking? 1-5yearssincel marco Information not available 05/25/2023 Single Or Multi-level Home/work? Single Level Home Information not available 03/16/2018 Live Alone Or With Others? With Others Information not available 03/16/2018 Do You Have Thoughts Of Hurting Yourself Or Others? No Information not available 03/16/2018 Have You Fallen Within The Past Three Months? No Information not available 07/05/2019 Marital Status [email or web address] Informatio n not available 12/06/2016 Do You Have A Medical Power Of Data Integration Architect? Yes Tashi Blanco Is Medical TICO Information not available 05/24/2022 What Was The Date Of Your Most Recent Tobacco Screening? 06/07/2025 [email or web address] Information not available 06/07/2025 What Is Your Current Pack Years? 30ormorepackye cha felicianoskridmelissa Information not available 05/25/2023 Post-op Transportation ? Yes Information not available 07/05/2019 Do You Have Smoke And Carbon Monoxide Detectors In Your Home? Yes [email or web address] Information not available 12/06/2016 At What Age Did You Start Smoking Tobacco? 42 Information not available 03/16/2018 How Much Tobacco Do You Smoke? 1 PPW [email or web address] Information not available 05/25/2023 Has Tobacco Cessation [...] Organization Details LastModified Time Father Alzheimer's disease [email or web address] Not available 12/06 11:04:35 Mother Hypertensive disorder [email or web address] Not available 12/06 11:04:48 Mother Family history of stroke [email or web address] Not available 12/06 11:05:02 Medical History Condition [...] conjugate PCV 13 6 completed Not Available [facility] 08/11/2021 20:21:57 Influenza, adjuvanted, trivalent, PF 5 [facility] 11:24:35 COVID-19, mRNA, LNP-S, PF, 100 mcg/0.5mL dose or 50 mcg/0.25mL dose 1 completed Not Available [facility] 08/11/2021 20:21:57 COVID-19, mRNA, LNP-S, PF, 100 mcg/0.5mL dose or 50 mcg/0.25mL dose 1 completed Not Available [facility] 08/11/2021 20:21:57 zoster recombinant 3 completed Kindra servin, [facility] 02/09/2023 09:49:46 influenza, unspecified formulation 3 [facility]23 09:00:55 RSV, recombinant, protein subunit RSVpreF, adjuvant reconstituted, 0.5 mL, PF 4 completed Kindra [facility] 06/19/2024 17:02:28 Influenza, adjuvanted, trivalent, PF 4 completed Kindra servin, [place] [facility] 06/19/2024 17:03:25 Influenza, split virus, quadrivalent, preservative 6 completed Not Available [facility] 08/11/2021 20:21:57 pneumococcal polysaccharide PPV23 9 completed Not Available [facility] 10/13/2019 02:51:32 Past Encounters Encounter ID Performer Location Encounter Start Date Encounter Closed Date Diagnosis/Indication Diagnosis SNOMED-CT Code Diagnosis ICD10 Code Diagnosis IMO Codes Diagnosis Note [id number] Jam Gonzalez M.D. [facility] [address] [place] [address] 12/06/2016 10:06:45 12/06/2016 11:42:24 Diabetes mellitus 38271960 E11.9 I am to recheck a hemoglobin A1c during the summertime her random blood sugar was 141 I also written her for a new home glucometer with strips and lancets to check it 2 or 3 times a week the goal will be under 140 in the more Hypothyroidism 36326773 E03.9 Check a TSH before the next visit in the summertime Hyperlipidemia 35675621 E78.5 I will recheck lipids with her next labs during the summertime and follow-up on that and monitor her blood sugars close Anemia 827784714 D64.9 Patient had a borderline anemia had cold guard negative and her blood count is back to normal her her iron stores are normal her B12 is normal [id number] [facility] [address] [place] [address] 03/16/2017 08:52:26 03/16/2017 09:26:05 Diabetes mellitus 20493880 E11.9 Hemoglobin E6wonlnlxm good control at this time she has had a vision exam within the last 6 months that was negative had cataract surgery She does have bunion deformity of the right toe and a callus on the MTP on the left I am going to go ahead and write her for diabetic shoes because of deformity of the right foot Hypothyroidism 92498653 E03.9 TSH is to goal she will continue her current dose of Synthroid will recheck that within the next 3-6 Hyperlipidemia 01771692 E78.5 LDL HDL is to goal continue the statin Essential hypertension 67648030 I10 Blood pressures well controlled Degenerati on of intervertebral disc 64401829 M51.9 I would have her continue meloxicam I will write her Ultram on a as needed basis I will send that to the pharmacy try to use it sparingly and be careful driving with that [id number] [address] [facility] [address] [facility] [address] [place], [place] [address] 09/13/2017 08:45:21 09/13/2017 09:29:25 Acute sinusitis 44473692 J01.90 Push H20. Use Nasal saline Q2-3 hrs. [id number] Makenzie Berry [facility] [address] [place] [address] 09/15/2017 10:48:53 09/15/2017 12:14:08 Essential hypertension 21960738 I10 controlled check CMP to recheck the low potassium Diabetes mellitus 886481 09 E11.9 had been good control recheck had lost some weight Hypothyroidism 00649744 E03.9 TSH today had lost some weight Hyperlipidemia 56154318 E78.5 LDL HDL is to goal continue the statin recheck next visit [id number] Jam Gonzalez M.D. [facility] [address] [place] [address] 01/19/2018 14:42:46 01/19/2018 15:18:51 Essential hypertension 81353637 I10 controlled check CMP next visit she has restarted the HCTZ Diabetes mellitus 534152 09 E11.9 had been good control recheck had lost some weight will recheck before the medicare physcial Hypothyroidism 20604607 E03.9 recheck the thyroid before the next visit Hyperlipidemia 17916113 E78.5 LDL HDL is to goal continue the statin recheck next visit Screening for malignant neoplasm of breast 303473991 Z12.31 set up mammo [id number] Makenzie Berry [facility] [address] [place] [address] 03/16/2018 09:56:14 03/16/2018 11:30:49 Adult health examination 794134106 Z00.01 we talked she have tashi make these decisionsb asedonthe situation Screening for cardiovascular system disease 387621542 Z13.6 LDL to goal Screening for malignant neoplasm of colon 477477578 Z12.11 had negativeco logaurdin 2016 repeat in 2019 Screening for osteoporosis 786587595 Z13.820 may repeat in the future Screening mammography 24 434428 Z12.31 up todate Hypothyroidism 95676470 E03.9 looks good today Hyperlipidemia 74115328 E78.5 LDL HDL is to goal continue the statin recheck next visit Diabetes mellitus 811695 09 E11.9 very tight control to see moody Active or passive immunization 063249632 Z23 she is considerin g a shingles vaccine Low blood pressure 37730 003 I95.9 no symptoms consider cutting the HCTZ down but she wants to hold off on this [id number] Jam Gonzalez M.D. [facility] [address] [place] [address] 09/14/2018 12:01:34 09/14/2018 12:43:39 Essential hypertension 72264251 I10 controlled check CMP next visit she has restarted the HCTZ Diabetes mellitus 907004 09 E11.9 very tight control to see moody Hypothyroidism 82734726 E03.9 looks good today Hyperlipidemia 67991306 E78.5 LDL HDL is to goal continue the statin recheck today Screening for osteoporosis 743148353 Z13.820 may repeat in the future Screening for malignant neoplasm of colon 609195985 Z12.11 had negativeco logaurdin 2016 repeat in 2019 Screening for malignant neoplasm of breast 595951695 Z12.31 will do at the next visit Edema of l ower extremity 523909750 R60.0 consider compressio n stockings check a Nt pro BNP if she would develop any orthopnea or PND [id number] Jam Gonzalez M.D. v[facility] [address] [place] [address] 05/08/2019 10:02:42 05/08/2019 11:16:39 Adult health examination 525193141 Z00.00 we talked she have tashi make these decisionsb asedonthe situation Screening for cardiovascular system disease 298541415 Z13.6 If the pt is not already diagnosed then medicare will pay for the screening every 5 yrs. Screening mammography 24 149307 Z12.31 repeat now Screening for osteoporosis 065937301 Z13.820 Z78.0 may repeat in the future Screening for malignant neoplasm of colon 963954138 Z12.11 had negativeco logaurdin 2016 repeat in 2019 Screening for malignant neoplasm of respiratory tract 370364848 Z87.891 This is for LDCT (lung cancer screening) The pt may be a current smoker or previous but it they quit longer than 15 yrs ago they do not qualify. Please fill out the the 1st 8 questions on the order and the pt's wt and ht. Active or passive immunization 317349981 Z23 Finding of body mass index 190631184 E66.9 bmi is 32.9 Essential hypertension 91428061 I10 controlled check CMP next visit she has restarted the HCTZ Diabetes mellitus 479068 09 E11.9 very tight control to [place] repeat Hypothyroidism 00712341 E03.9 repeat labs today Hyperlipidemia 02567961 E78.5 LDL HDL repeat today Degenerati on of intervertebral disc 20359452 M51.9 I would have her continue meloxicam I will write her Ultram on a as needed basis I will send that to the pharmacy try to use it sparingly and be careful driving with that. She could consider a consult for physical therapy or yoga [id number] MD [facility] [address] [place] [address] 06/20/2019 10:12:04 06/20/2019 11:20:56 Colorectal cancer detected by DNA-based stool screening 547466341 R85.89 Patient with a positive Cologuard test on 05/14/2019. This apparently was negative back in 2016. Request for initial screening colonoscop ic examinatio n. I do concur. I see no contra indication s to proceeding . Family his tory of cancer of colon 163441535 Z80.0 Patient with family history of colon cancer maternal uncle and multiple maternal cousins. We will proceed with interval screening colonoscop y as outlined above. Screening for malignant neoplasm of colon 326952294 Z12.11 Initial screening colonoscop y as above [facility] risk for acute ischemic cardiac event 516138958 Z91.89 [place] d EKG Pre-surgery testing 1104 63944 Z01.818 CBC, BMP [id number] MD [facility] [address] [place] [address] 08/06/2019 10:46:57 08/06/2019 11:17:53 Adenomatous polyp of colon 277557288 D12.6 Patient with mixed hyperplast ic/adenoma tous polyp of the descending colon noted on colonoscop ic examinatio n dated 07/24/2019 . I will recommend interval screening colonoscop y in 3 years unless otherwise indicated sooner. In the interval the patient will undergo yearly digital rectal examinatio n as well as occult blood testing of the stool. Diverticul osis of colon without diverticulitis 044109125 K57.30 Patient with uncomplica kaya left-sided diverticul osis coli. This is noted on colonoscop ic examinatio n dated 07/24/2019 . I will recommend initiation of a daily prebiotic with probiotic as well as daily fiber. Interval screening exam as recommende d above. [id number] Jam Gonzalez M.D. [facility] [address] [place] [address] 10/11/2019 11:03:05 10/11/2019 13:01:52 Abdominal pain 41006293 R10.9 observatio n admit probable colecystit is [id number] Jam Gonzalez M.D. [facility] [address] [place], [place] [address] 01/14/2020 10:29:20 01/14/2020 11:03:47 Common bile duct calculus 497984168 K80.50 removed Via ERCP we will treat with getting her script sen in for levaquin and flagyl follow up with labs in 10 days and get a discharge summary from [facility] Essential hypertension 60257500 I10 pressure was low they stopped her lisinopril and cut down on her HCTZ in half get labs in the next 10 days and follow up pressure [id number] Jam Gonzalez M.D. [facility] [address] [place] [address] 01/28/2020 11:57:36 01/28/2020 12:40:13 Calculus of gallbladder with cholecystitis 36925474 K80.10 removed gallbladde r then developed duct stone with infection Common nilsa e duct calculus 860774347 K80.50 removed Via ERCP extend out antibiotic course Abscess of liver 6835618 5 K75.0 related to bile duct infection extend out antibiotic s and get repeat Ct scan before the ID visit on the 10 of February [id number] Jam Gonzalez M.D. [facility] [address] [place] [address] 02/06/2020 14:27:26 02/06/2020 15:10:40 Common bile duct calculus 599461804 K80.50 removed Via ERCP extend out antibiotic course will be ending this weekend , reviewed ER labs no evidence of obstructio n. bili is normal at this time . she was dry when she went to the ER I wonder if the weight loss is related to the extended period of antibiotic s. Diabetes mellitus 459762 09 E11.9 very tight control no concerns recently Abscess of liver 6870881 5 K75.0 related to bile duct infection extend out antibiotic s Ct ER showed some inflammati on on the surface of the liver but no intrahepat ic abnormalit y. We will send the film and labs and disk to her follow up for infectious disease next week. [id number] Makenzie Berry [facility] [address] [place] [address] 05/13/2020 10:01:48 05/13/2020 12:04:09 Adult health examination 809425854 Z00.00 we talked she have tashi make these situation Screening for cardiovascular system disease 818952613 Z13.6 If the pt is not already diagnosed with cardiovasc ular disease and is asymptomat ic then medicare will pay for the screening every 5 yrs. Screening mammography 24 347677 Z12.31 05/16/2020 Negative. Due now after the Screening for osteoporosis 943942226 Z78.0 05/10/2019 T: -1.63 Screening for malignant neoplasm of colon 751188084 Z12.11 had cologuard in 2015, it was negative. last year for colonoscop y mixed polyp type no dysplasia Screening for malignant neoplasm of respiratory tract 168091947 Z87.891 Pt will think about it. she would like to hold off on lung cancer screening at this time Active or passive immunization 799539214 Z23 up to date add shingrix Finding of body mass index 542260317 E66.9 BMI- 32.8 Smoker 64363108 F17.200 we talked double risk of heart attack and stroke risk Inflammati on of rotator cuff tendon 205415190 M67.819 inject sterile fashion with depo medrol 80 with 3 cc of lidocaine in the right subacromia l space , therapy if not improving Common nilsa e duct calculus 622585818 K80.50 removed Via ERCP extend out antibiotic course will be ending this weekend , reviewed ER labs no evidence of obstructio n. bili is normal at this time . she was dry when she went to the ER I wonder if the weight loss is related to the extended period of antibiotic s. Diabetes mellitus 649348 09 E11.9 very tight control no concerns recently Essential hypertension 85174754 I10 pressure was low they stopped her lisinopril and cut down on her HCTZ in half get labs in the next 10 days and follow up pressure Hypothyroidism 85243528 E03.9 repeat labs 4 month s Hyperlipidemia 69894207 E78.5 LDL HDL repeat 4 months per her request [id number] Jam Gonzalez M.D. [facility] [address] [place] [address] 09/15/2020 10:15:02 09/15/2020 10:54:22 Squamous cell carcinoma of skin 546377878 C44.92 had a mohs resorbable suture right at the surface on the scalp no evidence or recurrence Hypothyroidism 12114032 E03.9 last looked good repeat every 6 months Diabetes mellitus 338959 09 E11.9 has risen we will treat with a A 1 c we will increase to metformin to 850 BID Essential hypertension 50701524 I10 pressure was low they stopped her lisinopril pressure is still nicely controlled Pain of sa croiliac joint 055442135 M53.3 start outpatient PT [id number] Jam Gonzalez M.D. [facility] [address] [place] [address] 01/15/2021 10:30:07 01/15/2021 11:05:34 Diabetes mellitus 57839212 E11.9 has risen we will treat with a A 1 c weight up we had increase the metformin last visit Hyperlipidemia 57241770 E78.5 last was excellent Essential hypertension 67309772 I10 pressure was low they stopped her lisinopril in the past may want to consider restarting for renal protection Screening for malignant neoplasm of breast 189498353 Z12.31 up to date and negative [id number] Jam Gonzalez M.D. [facility] [address] [place] [address] 05/15/2021 10:00:23 05/15/2021 10:59:43 Adult health examination 802118233 Z00.00 we talked she have tashi make these situation Screening mammography 24 612246 Z12.31 05/16/2020 Negative. Due now after the . she is holding off because of leaving for several months Screening for malignant neoplasm of colon 811300439 Z12.11 had cologuard in 2016, it was negative. last colonoscop y mixed polyp type no dysplasia in 2019 Active or passive immunization 829980689 Z23 had covid vaccine times 2 Finding of body mass index 442792750 E66.9 34.7 Hepatitis C screening 41 4173301 Z11.59 Once in a lifetime for patients born between 1806-5959 who are not considered high risk. Annually for high risk patients with continued illicit injection drug use Screening for osteoporosis 521117286 Z78.0 05/10/2019 T: -1.63 Basal cell carcinoma of skin 709090962 C44.91 fore head possible recurrence she wants dermatolog y at [place] [facility] Hypothyroidism 56154799 E03.9 last looked good repeat today Essential hypertension 53683523 I10 doing well with the lisinopril at this time she has restarted on her own Diabetes mellitus 083298 09 E11.9 has risen we will treat with a A 1 c weight up we had increase the metformin last visit she does not check her sugar at all at this time she noted that she is trying to eat more natural foods Squamous c ell carcinoma 496365905 C80.1 left mckeon resolved treated by dermatolog y in the past Edema of l ower extremity 490887137 R60.0 consider compressio n stockings check a Nt pro BNP if she would develop any orthopnea or PND [id number] Jam Gonzalez M.D. [facility] [address] [place], [place] [address] 07/15/2021 11:02:25 07/15/2021 11:40:50 Diarrhea 91415467 R19.7 stop metformin for a period of time 7 days and we will follow up on results Diabetes mellitus 625698 09 E11.9 sugar back about 140 she has noted that she is holding metformin to see about the cause of the diarrhea [id number] Jam Gonzalez M.D. [facility] [address] [place], [place] [address] 07/27/2021 12:27:25 07/27/2021 13:11:34 Edema of lower extremity 014539885 R60.0 was some better on the metformin try ER version to see if she can tolerate better Diabetes mellitus 916629 09 E11.9 sugar back about 140 she has noted that she is noted metformin was causing the diarrhea we will try to change to Er version and see what response Diarrhea 64893215 R19.7 resolved off of metformin it was the cause [id number] Tashi Blanco APRN [address] [place] [address] 09/03/2021 12:08:59 09/03/2021 12:34:53 Exposure to SARS-CoV-2 158491294 Z20.822 [id number] Jam Gonzalez M.D. [facility] [address] [place] , [place] [address] 09/07/2021 16:42:32 09/07/2021 17:38:11 Acute bronchitis 11711789 J20.9 has finished prednsison e we will ad doxycyclin e 100 mg BID and get chest xray we will follow up based on these results [id number] Tashi Blanco APRN [address] [place] [address] 10/15/2021 14:16:39 10/15/2021 14:29:30 COVID-19 612981296 U07.1 [id number] Makenzie Berry[facility]av[facility] [address] [place], [place] [address] 11/11/2021 09:51:07 11/11/2021 10:39:30 Conjunctivitis 2832018 H10.9 Get a culture and get back in with optometry and get a an eye culture today had improved but started to come back got antibiotic and steriod drops and ran out 3 days ago Diabetes mellitus 490663 09 E11.9 sugar back about 140 she has noted that she is noted metformin was causing the diarrhea we will try to change to Er version and see what response Hyperlipidemia 15629915 E78.5 last was excellent repeat with the lipid Hypothyroidism 61276240 E03.9 last looked good repeat today Essential hypertension 20794339 I10 doing well with the lisinopril her pressure is well controlled at this time [id number] Jam Gonzalez M.D. [facility] [address] [place] [address] 05/24/2022 09:57:42 05/24/2022 11:11:58 Adult health examination 661208792 Z00.00 NO LABS UNDER THE ZOO CODE FOR MEDICARE PATIENTS Screening mammography 24 205704 Z12.31 05/16/2020 Negative. Due now after the . she is holding off because of leaving for several months Screening for osteoporosis 027972809 Z78.0 NOT FOR PATIENTS WITH existing DX OF OSTEOPOROS IS. Screening for malignant neoplasm of colon 242897880 Z12.11 had cologuard in 2016, it was negative. last colonoscop y mixed polyp type no dysplasia in 2019 Screening for malignant neoplasm of respiratory tract 320408983 Z87.891 This is for LDCT (lung cancer screening) The pt may be a current smoker or previous but it they quit longer than 15 yrs ago they do not qualify. Please fill out the the 1st 8 questions on the order and the pt's wt and ht.quit over 16 years ago Active or passive immunization 572329376 Z23 Finding of body mass index 455702709 E66.9 bmi 33.1 Hepatitis C screening 41 5282314 Z11.59 Once in a lifetime for patients born between 9355-7406 who are not considered high risk. Annually for high risk patients with continued illicit injection drug use At [facility] risk for falls 738410843 Z91.81 she has noted that she has been working with increasing activity for her trip to [facility]. Diabetes mellitus 165615 E11.9 she will get her labs updated she has been working on weight loss and activity Hyperlipidemia 58033421 E78.5 last was excellent repeat with the lipid Hypothyroidism 95909861 E03.9 last looked good repeat today [id number] Makenzie Berry [facility] [address] [place] , [place] [address] 08/04/2022 15:14:12 08/04/2022 16:47:07 Conjunctivitis 0313769 H10.9 repeat a culture and follow up we could see if we can get the records from opthamolog y Actinic keratosis 007 L57.0 we will treat with 3 freeze thaw cycles of the AK on the middle forehead biopsy of not improving Diabetes mellitus 126077 E11.9 she will get her labs updated she has been working on weight loss and activity and her weight is down [id number] MD Evelia Garnett [facility] [address] [facility] [place] , [place] [address] 09/08/2022 12:30:21 09/08/2022 13:23:33 Screening for malignant neoplasm of colon 564135240 Z12.11 [id number] Makenzie Berry [facility] [address] [place] , [place] [address] 09/21/2022 11:57:40 09/21/2022 13:14:31 Cough 76375066 R05.9 Acute bronchitis 6997919 2 J20.9 treat with albuterol and doxycyclin e [id number] Makenzie Berry [facility] [address] [place] , [place] [address] 12/08/2022 11:17:37 12/08/2022 12:13:49 Cervical radiculopathy 89215485 M54.12 its a mild tingling left side shoulder blade and down into the left upper arm its mild we will follow it for now its coming and going with no new injury Cutaneous horn 755641772 L85.8 small early left mid cheek we will freeze with 3 freeze thaw cycles and follow up on the response treat with bacitracin if needed [id number] [facility] [address] [place] [address] 04/05/2023 14:10:44 04/05/2023 14:46:21 Paronychia of toe of left foot due to ingrown toenail 396096609 L03.032 we will treat with Bactrim DS BID for 7 days warm compresses and I talked to her daughter about keeping this allow this to heal. it may drain but is not currently fluctuant the pulses and blood flow look good at this time [id number] Makenzie Berry [facility] [address] [place] [address] 04/12/2023 15:29:12 04/12/2023 16:03:24 Paronychia of toe of left foot 7948691174 4127374 L03.032 It appears to have resolved we need to watch for how the nail will stay attached to the nail bed and the nail matrix we will monitor she is now off of bactrim [id number] Jam Gonzalez M.D. [facility] [address] [place] [address] 05/25/2023 09:59:11 05/25/2023 11:16:24 Adult health examination 797119435 Z00.00 NO LABS UNDER THE ZOO CODE FOR MEDICARE PATIENTS Screening mammography 24 022580 Z12.31 06/02/2022 - negativede clines due to age Screening for osteoporosis 010975376 Z78.0 06/02/2022 - T: -2.19 Screening for malignant neoplasm of colon 845365124 Z12.11 05/14/2019 - cologuard - [id number] - Keith - polyp (hyperplas tic/adenom atous) - Family history colon 12/01/22 cscope negative with 10 year follow up Screening for malignant neoplasm of respiratory tract 292280347 Z87.891 quit 3-4 years ago05/10/20 19 - LDCT - no massesdecl linda screening Active or passive immunization 990710555 Z23 UTD Finding of body mass index 877298099 E66.9 BMI:31.1 Hepatitis C screening 41 3797253 Z11.59 05/15/2021 - normal At [facility] risk for falls 942519772 Z91.81 4 on screening Diabetes mellitus 665963 09 E11.9 she will get her labs updated she has been working on weight loss and activity and her weight is down need to get back into her walking. We talked about yearly eye care she want podiatry for nail care and callous care and she has bunion deformity each foot Essential hypertension 08251562 I10 doing well with the lisinopril her pressure is well controlled at this time get labs updated at this time Hypothyroidism 94672788 E03.9 last looked good repeat today weight down and stable Hyperlipidemia 40217422 E78.5 last was excellent repeat with the lipid [id number] MARCUS Quispe [facility] [address] [facility] [address] [place] [address] 05/27/2023 11:18:42 05/27/2023 11:31:58 Diabetes mellitus 87134141 E11.9 Pt was on lisinopril for DM and she feels it helped her swelling as well. It was stopped when she has an episode of low BP in the hospital when she was ill. She would like to have it restarted. Essential hypertension 12267395 I10 Hyperlipidemia 41945423 E78.5 Hypothyroidism 56217630 E03.9 [id number] JOSE Sims [facility] [address] [place] , [place] [address] 06/01/2023 11:29:31 06/01/2023 11:56:33 Paronychia of toe of left foot 3437851055 8425372 L03.032 left great toe with subungual infection in March Onychomyco sis of toenails 555945302 B35.1 left great toe Diabetes mellitus 358685 09 E11.9 Acquired l eft hallux valgus 9299390921 05464 M20.12 left greater than right Acquired r ight hallux valgus 9045402242 07200 M20.11 [id number] JOSE Sims [facility] - [address] [place] [address] 07/14/2023 10:26:18 07/14/2023 10:49:04 Paronychia of toe of left foot 6681274788 0556053 L03.032 left great toe with subungual infection in March Onychomyco sis of toenails 245628808 B35.1 left great toe Diabetes mellitus 691980 09 E11.9 Acquired l eft hallux valgus 7960880165 59624 M20.12 left greater than right Acquired r ight hallux valgus 0376763898 68541 M20.11 [id number] JOSE Sims [facility] - [address] [place] [address] 07/21/2023 10:07:37 07/21/2023 10:41:27 Paronychia of toe of left foot 4994405149 8500854 L03.032 left great toe with subungual infection in March Onychomyco sis of toenails 076085038 B35.1 left great toe Diabetes mellitus 523982 09 E11.9 Acquired l eft hallux valgus 8375107399 22197 M20.12 left greater than right Acquired r ight hallux valgus 8111025684 80460 M20.11 [id number] JOSE SimsNDKAVITA [facility] - [address] [place] [address] 08/31/2023 11:02:39 08/31/2023 11:27:38 Paronychia of toe of left foot 9119786702 0978078 L03.032 left great toe with subungual infection in March Onychomyco sis of toenails 223371404 B35.1 left great toe Diabetes mellitus 974546 09 E11.9 Acquired l eft hallux valgus 8189947300 06078 M20.12 left greater than right Acquired r ight hallux valgus 4330068955 99751 M20.11 [id number] Jam Gonzalez M.D. [facility] - [address] [place] [address] 10/04/2023 12:00:17 10/04/2023 12:47:17 Upper respiratory infection 13397712 J06.9 Acute bronchitis 9343043 2 J20.9 patient has wheezing all lung hays for about 7 days and she has no fevers has been using albuterol with minimal benefit at this time consider PFT if not improving try dexamethas one may impact the blood sugar so we will need to monitor more closely . [id number] JOSE Sims [facility] - [address] [place] [address] 11/30/2023 11:00:50 11/30/2023 11:39:08 Paronychia of toe of left foot 3013384380 2514424 L03.032 left great toe with subungual infection in March Onychomyco sis of toenails 603936621 B35.1 left great toe Diabetes mellitus 484139 09 E11.9 Acquired l eft hallux valgus 5363527703 60972 M20.12 left greater than right Acquired r ight hallux valgus 8687052081 29236 M20.11 Pruritic rash 34124545 L 28.2 dorsal left foot [id number] Jam Gonzalez M.D. [facility] - [address] [place] [address] 01/09/2024 10:58:16 01/09/2024 11:43:14 Hyperlipidemia 10387345 E78.5 we will get labs updated at this time Essential hypertension 95107593 I10 pressure is low no symptoms we will follow up on results Diabetes mellitus 086245 09 E11.9 get labs updated she is not as active in the winter time and she does not check her blood sugars at this time. saw eye care 2 weeks ago no diabetic changes Hypothyroidism 85289744 E03.9 Restless l egs syndrome 33619052 G25.81 rarely has to use this [id number] JOSE Sims [facility] - [address] [place] [address] 02/16/2024 15:31:20 02/16/2024 17:04:12 Pain in left foot 0390859298 89843 M79.672 Closed fra cture of proximal phalanx of lesser toe of left foot 3229508912 3959068 S92.515A 5th toe base Paronychia of toe of left foot 7594405210 1330460 L03.032 left great toe with subungual infection in March Onychomyco sis of toenails 223087617 B35.1 left great toe Diabetes mellitus 491907 09 E11.9 Acquired l eft hallux valgus 5455759451 44356 M20.12 left greater than right Acquired r ight hallux valgus 6556182350 97492 M20.11 Pruritic rash 52150118 L 28.2 dorsal left foot [id number] JOSE Sims [facility] - [address] [place] [address] 02/29/2024 10:56:38 02/29/2024 12:09:47 Pain in left foot 9778956432 10697 M79.672 Closed fra cture of proximal phalanx of lesser toe of left foot 7659031210 9974195 S92.515A 5th toe base Paronychia of toe of left foot 0721717097 1436800 L03.032 left great toe with subungual infection in March Onychomyco sis of toenails 150260512 B35.1 left great toe Diabetes mellitus 006934 09 E11.9 Acquired l eft hallux valgus 9828634077 51848 M20.12 left greater than right Acquired r ight hallux valgus 5397975847 80083 M20.11 Pruritic rash 66903831 L 28.2 dorsal left foot [id number] Jam Gonzalez M.D. [facility] - [address] [place] [address] 06/04/2024 09:59:18 06/04/2024 10:55:06 Adult health examination 107080656 Z00.00 NO LABS UNDER THE ZOO CODE FOR MEDICARE PATIENTS Screening mammography 24 981378 Z12.31 06/02/2022 - negative- she wants to hold off on these for now we talked about risks and benefits at this time. Screening for osteoporosis 296021775 Z78.0 06/02/2022 - T: -2.19 Screening for malignant neoplasm of colon 631486849 Z12.11 12/01/2022 - [place] - no polyps - 10 years Screening for malignant neoplasm of respiratory tract 625791041 Z87.891 Former - quit 5 years2018 - LDCT - no massdeclin es Active or passive immunization 781376544 Z23 UTD Hepatitis C screening 41 2776752 Z11.59 05/15/2021 - normal At [facility] risk for falls 982328942 Z91.81 4 on fall risk, declines therapy Diabetes mellitus 455183 09 E11.9 last sugar was pretty well controlled at 7.2 at this time. We will keep working on this and her weight trend is down. get diabetic shoes due to a possible risk she has been using some diabetic shoes. Essential hypertension 15523938 I10 pressure will be rechecked today. No symptoms we will follow up on results reviewed labs Hyperlipidemia 31694175 E78.5 prefect and repeat every 6 months Hypothyroidism 22716100 E03.9 TSH is mild suppressed and the free T4 is normal we will monitor no side effects at this time. Neck pain 48679787 M54.2 has been having pain off an on for a couple of months we will get a consult with PT no radiation down the arms or weakness at this time. Neoplasm o f uncertain behavior of skin 40862310 D48.5 we will send for dermatolog y consult and photo document the lesion on the left forehead she has a Mohs procedure about 1 year ago close to this location. [id number] Jam Gonzalez M.D. [facility] - [address] [facility] [address] 07/25/2024 11:31:25 07/25/2024 12:26:07 Pruritic rash 56296244 L28.2 she photo of excoriatio ns left cheek we will try 2.5% hydorcorti sone Cervical radiculopathy 44204845 M54.12 She has done physical therapy and has been improved but now having pain back down the left arm we will get x-ray and consider mri next for possible pain management and possible neuro surgery depends on how much this bothers her. Stool color abnormal 271 003278 R19.5 3 days consider dietary factors and she will keep me updated. She has no diarrhea consider stool studies if not improving. She is up to date with her colonoscop y negative. [id number] Jam Gonzalez M.D. [facility] - [address] [place], [place] [address] 12/03/2024 10:01:40 12/03/2024 10:31:02 Restless legs syndrome 91795491 G25.81 rarely has to use this Essential hypertension 64544628 I10 pressure will be rechecked today. No symptoms we will follow up on results reviewed labs Diabetes mellitus 963524 09 E11.9 last sugar was pretty well controlled at 7.2 at this time. We will keep working on this and her weight trend is down. get diabetic shoes due to a possible risk she has been using some diabetic shoes. She saw eye care about 6 weeks ago Hyperlipidemia 91551418 E78.5 perfect and repeat every 6 months Hypothyroidism 11997497 E03.9 TSH is mild suppressed and the free T4 is normal we will monitor no side effects at this time. Ingrowing nail of toe of right foot 4723528650 3388334 L60.0 no inflammati on trimmed all the nails non oare very thick [id number] Jam Gonzalez M.D. [facility] - [address] [place], [place] [address] 01/15/2025 12:18:49 01/15/2025 12:58:13 Diabetes mellitus 39768715 E11.9 improving control with activity increase we will repeat these and and we will get A 1c in 2 months goal under 140 in the AM [id number] Jam Gonzalez M.D. [facility] - [address] [place] , [place] [address] 03/18/2025 11:03:10 03/18/2025 11:43:43 Diabetes mellitus 36529441 E11.9 Improving control she seems to have committed to weight loss and we will follow up with results and she has been active. Restless l egs syndrome 71388844 G25.81 rarely has to use this but she needs a refill today we will refill and continue the same at this time. [id number] Makenzie Berry [facility] - [address] [place] [address] 06/07/2025 09:58:57 06/07/2025 11:37:26 Adult health examination 056145535 Z00.00 NO LABS UNDER THE ZOO CODE FOR MEDICARE PATIENTS Screening mammography 24 370606 Z12.31 06/02/2022 - negative- she wants to hold off on these for now we talked about risks and benefits at this time. Screening for osteoporosis 682513786 Z78.0 06/27/2024 - T: -1.42 Screening for malignant neoplasm of colon 182249839 Z12.11 12/01/2022 - [place] - no polyps - 10 years Screening for malignant neoplasm of respiratory tract 239104042 Z87.891 former - quit 5 years2018 - LDCT - no mass Risks verses benefits have been explained to patient for LDCT and they verbalize understand ing and are agreeable to screening. Hepatitis C screening 41 9109364 Z11.59 05/15/2021 - normal At [facility] ed risk for falls 761850825 Z91.81 2 on steadi fall risk. not a fall risk Hyperlipidemia 11424515 E78.5 perfect and repeat every 6 months Hypothyroidism 90267046 E03.9 TSH is mild suppressed and the free T4 is normal we will monitor no side effects at this time. repeat today weight up slightly Diabetes mellitus 122222 09 E11.9 activity level could benefit from an increase we will repeat labs today Essential hypertension 66087292 I10 blood pressure looks very good this AM repeat labs updated Immunization due 7554834 08 Z23 7797311 [id number] Jam [facility]. [facility] [address] [place] [address] 08/15/2025 11:29:44 08/15/2025 12:32:51 Cough 40516639 R05.9 1874933811 Acute bronchitis 6239593 2 J20.9 59050707 patient has 2 days of symptoms with multiple sick contacts I am going to get a chest x-ray on her COVID and flu are negative script for albuterol low-dose dexamethas one and doxycyclin e Health Concerns Section Related Observation LastModified by Organization Detai ls LastModified Time None Recorded Concern Status LastModified by Organization Details LastModified Time None Recorded Advance Directives Directive Y: supposed to bring in next time bring in. Payers Insurance Date Sequence Insurance Name Policy Number Policy Wick Covered Member ID Wick Member ID Guarantor Name 06/30/2023 2 UNSPECIFIED REMIT PAYOR Yesy Bland Max 03/18/2025 2 [facility] (MEDICARE SUPPLEMENT) Yesy Bland Santana Yesy Bland Max 03/18/2025 1 [employer] (POS) [id number] Yesy B Max [id number] Yesy B Max 03/18/2025 1 [employer] (MEDICARE REPLACEMENT/A DVANTAGE - PPO) [id number] Yesy B Max [id number] Yesy B Max 03/18/2025 [place] Yesy B Max [id number] Yesy B Max 05/25/2023 2 [employer] (MEDICARE SUPPLEMENT) Yesy Bland Max [id number] Yesy B Max 03/18/2025 2 [place]y B Max [id number] Yesy B Max 05/25/2023 2 [place] [facility] [id number] Yesy Max [id number] Yesy B Max 05/25/2023 2 [employer] (MEDICARE SUPPLEMENT) PLAN F Yesy Bland Max [id number] Yesy Bland Max 03/18/2025 [place] - [facility] Yesy B Max [id number] Yesy B Max 03/18/2025 1 [employer] (MEDICARE REPLACEMENT/A DVANTAGE - PPO) Yesy B Max [id number] Yesy B Max 08/14/2025 1 [place] [employer] (MEDICARE REPLACEMENT/A DVANTAGE - HMO) Yesy B Max [id number] Yesy B Max 03/18/2025 1 [employer] (MEDICARE REPLACEMENT/A DVANTAGE - PPO) Yesy B Max [id number] Yesy B Max 03/18/2025 1 [place] Yesy B Max [id number] Yesy Santana Notes Date Note Type Note Provider Name and Address Organization Details Recorded Time 12/03/2024 text/html DiabetesReported by Patient Hypertension IM/FMReported by Patient she has been limited activity and noted that she has lost weight and noted that she has seen her weight go down recently. She has not been checking her sugar. Jam Gonzalez M.D. [address], [place], [address], [facility] 12/03/2024 10:24:21 01/15/2025 text/html DiabetesReported by Patient She has noted that she has been walking her dog she has been trying get more walking more she has seen a drop in her blood sugar. She has been trying to watch her diet and blood sugar. We reviewed her readings and they are improves. Jam Gonzalez M.D. [address], [place], [address], [facility] 01/15/2025 13:08:01 03/18/2025 text/html DiabetesReported by Patient She has been more active and walking and she has been losing weight and the weather has been some better at this time. She is seeing 130-160s at this time. We will followup on the same at this time. Jam Gonzalez M.D. [address], [place], [address], [facility] 03/18/2025 11:30:11 06/07/2025 text/html Medicare Annual Wellness VisitReported by PatientSocial/Behavior al HistoryFor diet and nutrition, patient reportshigh caloric intakeandhigh carbohydrate mealsbut reportsdiscussed vitamin and supplement use,discussed portion control, anddiscussed maintaining calcium balance(pt trying to eat better). For fracture risk, patient reportshistory of fracturesbut reportsno recent explained fracture,no sudden unexplained fractures, andno previous musculoskeletal injuries(2 broken ribs). For physical activity, patient reportsexercises on a regular basis,good physical condition,discussed weightbearing activities, anddiscussed exercise habits(recent travels with lots of walking).Mental Status:For depression risk, patient reportsnever feels sad, empty, or tearful,no loss of interest in activities,no significant changes in weight,no sleep disturbances or insomnia,no agitation,no loss of energy,no feelings of worthlessness or guilt,no thoughts of suicide,no history of depression, andno history of mood disorders. For orientation, patient reportsno disorientation to time,no disorientation to date, andno disorientation to place. For concentration and memory, patient reportsno decreased concentrating ability,no memory lapses or loss, anddoes not forget words. For speech/motor difficulties, patient reportsno speech difficulties,no difficulty expressing formulated concepts,no difficulty with fine manipulative tasks,no difficulty writing/copying,no slowed reaction time, anddoes not knock things over when trying to pick them up.Functional AbilityFor hearing, patient reportsloss of hearing: in both ears,difficulty hearing over background noise, andrequires tv, radio at high volume. For vision, patient reportsworse near(wears glasses for readingcataract sx on both [facility] [place] For home safety, patient reportsdoes not have hand bars in the bathroom/showerbut reportsno unsafe alpesh hazzards,no unsafe stairs,working smoke/co detectors,use of seatbelts,no vision or hearing loss while driving,good lighting in the home,reviewed sun protection, andnumber of motor vehicle accidents 0. For activities of daily living, patient reportsable to bathe with limited or no assistance,able to contol urination and bowels,able to dress with limited or no assistance,able to feed self with limited or no assistance,able to get out of chair or bed with limited or no assistance,able to groom with limited or no assistance, andable to toilet with limited or no assistance. For instrumental activities of daily living, patient reportsable to do house work with limited or no assistance,able to grocery shop with limited or no assistance,able to manage medications with limited or no assistance,able to manage money with limited or no assistance,able to prepare meals with limited or no assistance, andable to use the phone with limited or no assistance. For falls risk assessment, patient reportsfall(s) in the past year 0andfall(s) since last visit0. We talked about that she never smoked long enough to qualify for lung cancer screening we noted that and we talked about mammogram and after age 75 she has elected to hold off at this time. Jam Gonzalez M.D. [address], [place], [address], [facility] 06/07/2025 11:21:51 08/15/2025 text/html Upper Respirator y SymptomsReported by [...] this time Jam Gonzalez M.D. [address], [place], [address], [facility] 08/15/2025 12:32:30 OBGyn Episode No OBEpisode recorded.
--- OUTSIDE RECORDS SUMMARY | 2025-09-13 15:29 | XMS_ITS | Clinical Summary ---
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 Gender Identity Not on file Sexual Orientation Not on file Plan of Treatment Health Maintenance Due Date Last Done Comments IMM Schedule: Varicella (1 o f 2 - 13+ 2-dose series) 1958 IMM Schedule: Diphtheria, Tetanus, and Pertussis (1 - Tdap) 1964 IMM Schedule: Zoster (1 of 2) 1995 IMM Schedule: Pneumococcal (50+ Years) (2 of 2 - PCV) 05/08/2020 05/08/2019 IMM Schedule: RSV Patients and ages 60+ (1 - 1-dose 75+ series) 2020 COVID-19 Vaccine (3 - 2024-2 6 season) 2025 12/25/2020, 10/17/2020 IMM Schedule: Influenza (#1) 2025 06/17/2017 IMM Schedule: Hepatitis A Aged Out No longer eligible based on patient's age to complete this topic IMM Schedule: Hepatitis B Aged Out No longer eligible based on patient's age to complete this topic IMM Schedule: Meningococcal ACWY (Menhibrix/Menomune) Aged Out No longer elig ible based on patient's age to complete this topic IMM Schedule: Meningococcal B Aged Out No longer eligible based on patient's age to complete this topic IMM Schedule: RSV <20 Months Aged Out No longer eligible based on patient's age to complete this topic Insurance MEDICARE A AND B Care Teams Osha Inspector Relationship Specialty Start Date End Date JesusitaViktorTalon [address] [address] PCP - General 12/02/01 Additional Source Comments IMPORTANT NOTICES REGARDING PATIENT RECORDS DISCLOSED THROUGH CARE EVERYWHERE:1. If the informationreleased to you contains information about AIDs or HIVtest results, that information has been disclosed to you from records whoseconfidentiality is protected by state law ([place]RS 214.625). State law proh ibitsyou from making any further disclosure of such information relating to AIDS orHIV without the specific written consent of the person to whom such informationpertains, or as otherwise permitted by state law. A general authorization forthe release of medical or other information is NOT sufficient for this purpose.2. If the information released to you contains information about alcohol ordrug abuse diagnosis, treatment for such abuse, or referrals for treatment, andif the release was made by a program as defined in 42 CFR 2.11, thisinformation has been disclosed to you from records protected by Federalconfidentiality rules ( TheFederal rules restrict any use of the information to criminally investigate orprosecute any alcohol or drug abuse patient.3. If the information released to you contains information about a person'smental health or chemical dependency, you may not redisclose or otherwisereveal information concerning the mental health or chemical dependency of thatperson, beyond the purpose for which the disclosure was made, without firstobtaining that person's specific written consent to the redisclosure. [id number].[facility]
--- OUTSIDE RECORDS SUMMARY | 2025-09-13 15:29 | XMS_ITS | Clinical Summary ---
Author Organization [facility] Address [address] [place] [address] Care Team Providers Care Diabetes Territory Manager Name Role Phone Jam Gonzalez MD Primary Care Provider [phone] Allergies No known active allergies Medications aspirin 81 MG EC tablet Take 81 mg by mouth Daily. Active levothyroxine (SYNTHROID, LEVOTHROID) 88 MCG tablet Take 88 mcg by mouth Daily. Active meloxicam (MOBIC) 15 MG tablet Take 15 mg by mouth Daily. Active metFORMIN (GLUCOPHAGE) 500 MG tablet Take 500 mg by mouth 2 (Two) Times a Day With Meals. Active saccharomyces boulardii (FLORASTOR) 250 MG capsule Take 250 mg by mouth Every Night. Active rOPINIRole (REQUIP) 1 MG tablet Take 1 mg by mouth At Night As Needed. Take 1 hour before bedtime. Active rosuvastatin (CRESTOR) 10 MG tablet Take 10 mg by mouth Daily. Active traMADol (ULTRAM) 50 MG tablet Take 50 mg by mouth Every 6 (Six) Hours As Needed for Moderate Pain . Active albuterol sulfate HFA 108 (90 Base) MCG/ACT inhaler Inhale 2 puffs Every 4 (Four) Hours As Needed for Wheezing. Active polyethylene glycol (MIRALAX) pack packet Take 17 g by mouth 2 (Two) Times a Day As Needed (constipation). 20 each 0 Active albuterol (PROVENTIL) (2.5 MG/3ML) 0.083% nebulizer solution Take 2.5 mg by nebulization Every 4 (Four) Hours As Needed for Wheezing. 360 mL 12 0 Active hydroCHLOROthia zide (HYDRODIURIL) 25 MG tablet Take 0.5 tablets by mouth Daily. 0 Active acetaminophen (TYLENOL) 325 MG tablet Take 2 tablets by mouth Every 4 (Four) Hours As Needed for Mild Pain . 0 Active Active Problems Problem Noted Date Diagnosed Date Liver abscess 01/13/2020 Epigastric pain 01/11/2020 Choledocholithiasis 01/11/2020 Ascending cholangitis 01/11/2020 Influenza A 10/18/2019 Choledocholithiasis with acute cholecystitis Type 2 diabetes mellitus, nd thout long-term current use of insulin 10/11/2019 Calculus of gallbladder with acute cholecystitis 10/11/2019 Hypothyroidism (acquired) 10/11/2019 CKD (chronic kidney disease) stage 3, GFR 30-59 ml/min 10/11/2019 Bile duct calculus with acute cholecystitis 09/26 Calculus of gallbladder with acute cholecystitis and obstruction 10/11/2019 Overview (10/12/2019): Added automatically from request for surgery [id number] Family History Medical History Relation Name Comments Alzheimer's disease Brother Alzheimer's disease Father Stroke Mother Relation Name Status Comments Brother Father Mother Social History Tobacco Use Types Packs/Day Years Used Date Smoking Tobacco: Former Cigarettes Smokeless Tobacco: Never Tobacco Cessation:Counseling Given: No Comments:quit many years ago Alcohol Use Standard Drinks/Week Comments Yes 0 (1 standard drink = 0.6 oz pur e alcohol) occassionally-cocktails Abuse Screen Answer Date Recorded Unsafe at Home or Work/School Not on file Feels Threatened by Someone? Not on file 05/2023 Does Anyone Keep You from Co ntacting Others or Doint Things Outside the Home? Not on file 07/04/2023 Physical Sign of Abuse Present Not on file 1 Housing Stability Answer Date Recorded Current Living Arrangements Not on file 05/2023 Potentially Unsafe Housing Conditions Not on bhavani e 07/04/2023 Family and Community Support Answer Reed e Recorded Help with Day-to-Day Activities Not on file 07/04/2023 Lonely or Isolated Not on file 07/04/2023 Employment Answer Date Recorded Do you want help finding or keeping work or a eulogio b? Not on file 07/04/2023 Disabilities Answer Date Recorded Concentrating, Remembering, or Making Decisions Difficulty Not on file 07/04/2023 Doing Errands Independently Difficulty Not on fi le 07/04/2023 Education Answer Date Recorded Help with school or training? Not on file Preferred Language Not on file 07/04/2023 Comments No Sex and Gender Information Value Date Recorded Sex Assigned at Not on file Legal Sex Female 8:33 PM EDT Gender Identity Not on file Sexual Orientation Not on file Last Filed Vital Signs Vital Sign Reading Time Taken Comments Blood Pressure 103/71 02/11/2020 2:16 PM EDT Pulse 101 02/11/2020 2:16 PM EDT Temperature 36.2 C (97.1 F) 02/11/2020 2:16 PM EDT Respiratory Rate 14 02/11/2020 2:16 PM EDT Oxygen Saturation 95% 01/13/2020 8:56 AM EDT Inhaled Oxygen Concentration - - Weight 85.7 kg (189 lb) 02/11/2020 2:16 PM EDT Height 162.6 cm (5' 4 ) 02/11/2020 2:16 PM EDT Body Mass Index 32.44 02/11/2020 2:16 PM EDT Plan of Treatment Health Maintenance Due Date Last Done Comments DXA SCAN 1945 TDAP/TD VACCINES (1 - Tdap) 1964 ZOSTER VACCINE (1 of 2) 1995 ANNUAL PHYSICAL 10/19/2019 RSV Vaccine - Adults (1 - 1- dose 75+ series) 2020 INFLUENZA VACCINE 04/26/2025 06/17/2017 COVID-19 Vaccine ( - season) 2025 Pneumococcal Vaccine 50+ Completed 05/08/2019, 11/0 04/2016 HEPATITIS C SCREENING Completed 01/11/2020 Medical Devices Implanted Type Area In Store Marketing Representative Device Identifier Shelf Expiration Date Model / Serial / Lot Sealant Fibrin Tisseel Fz 10ml - [id number] Implanted:Qty: 1 on 10/12/2019 by Parviz Lezama MD at [facility] Implant CEE [employer] 05/26/2021 [id number] / / [id number] Hemoclip Vasc Horizon Ti /Lg 6ct Gn - [id number] Implanted:Qty: 1 on 10/12/2019 by Parviz Lezama MD at [facility] Implant [employer] 05/28/2024 [id number] / / [id number] Procedures Procedure Name Priority Date/Time Associated Diagnosis Comments HEPATITIS PANEL, ACUTE Routine 01/11/2020 2:46 PM EDT from Last 3 Months or Most Recently Relevant to Health Maintenance Insurance MEDICARE A & B Member Subscriber Plan / Payer (Ef fective 2010-Present) Name:Yesy Santana Member ID:[id number] Relation to Subscriber:Self Name:Yesy Santana Subscriber ID:[id number] Payer ID:[id number] Group ID:Not on file Type:Not on file Address: [address] Advance Directives * CPR (Attempt to Resuscitate) (Latest Code Status on File) Date Activated Date Inactivated Comments 01/11/2020 12:53 AM 01/13/2020 3:58 PM Question Answer Comments Code Status (Patient has no pulse and is not breathing): CPR (Attempt to Resuscitate) Medical Interventions (Patie nt has pulse or is breathing): Full Level Of Support Discussed With: Patient * CPR (Attempt to Resuscitate) Date Activated Date Inactivated Comments 10/11/2019 11:07 PM 10/18/2019 3:20 PM Question Answer Comments Code Status (Patient has no pulse and is not breathing): CPR (Attempt to Resuscitate) Medical Interventions (Patie nt has pulse or is breathing): Full Care Teams Diabetes Territory Manager Relationship Specialty Start Date End Date Jam Gonzalez MD [address] [place] [address] PCP - General Family Medicine 02/04/20
--- OUTSIDE RECORDS SUMMARY | 2025-09-13 15:29 | XMS_ITS | Clinical Summary ---
Author Organization [facility] Address [address] [place], [place] [address] Care Team Providers Care Airline Pilot/First Officer Name Role Phone Rosina Blanco APRN Primary Care Provider [phone] Allergies No known active allergies Medications rosuvastatin (CRESTOR) 10 MG tablet Take 10 mg by mouth daily Active celecoxib (CELEBREX) 200 MG capsule Take 200 mg by mouth 2 (two) times daily Active lisinopril (PRINIVIL,ZESTR IL) 5 MG tablet Take 5 mg by mouth daily Active aspirin 81 MG tablet Take 81 mg by mouth daily Active ROPINIRole HCl (REQUIP PO) Take by mouth Acti ve spironolactone (ALDACTONE) 25 MG tablet Take 25 mg by mouth daily Active hydrochlorothia zide (HYDRODIURIL) 12.5 MG tablet Take 12.5 mg by mouth daily Active estradiol (ESTRACE) 0.1 MG/GM vaginal cream Place 2 g vaginally daily Active Active Problems Problem Noted Date Diagnosed Date Diabetes mellitus Thyroid disease Hyperlipidemia Abnormal ECG Family History Medical History Relation Comments Heart disease Brother Heart attack Maternal Grandfather Heart disease Maternal Grandfather Heart attack Paternal Grandmother Heart disease Paternal Grandmother Relation Status Comments Brother Maternal Grandfather Paternal Grandmother Social History Tobacco Use Types Packs/Day Years Used Date Smoking Tobacco: Former Cigarettes 20 1 10/07/1990 - 08/07/2011 Alcohol Use Standard Drinks/Week Comments Yes 0 (1 standard drink = 0.6 oz pur e alcohol) SOCAIL Comments Unknown Sex and Gender Information Value Date Recorded Sex Assigned at Not on file Legal Sex Female 4:45 PM EST Gender Identity Not on file Sexual Orientation Not on file Last Filed Vital Signs Vital Sign Reading Time Taken Comments Blood Pressure 110/70 08/07/2014 11:58 AM EST Pulse 73 08/07/2014 11:58 AM EST Temperature - - Respiratory Rate - - Oxygen Saturation - - Inhaled Oxygen Concentration - - Weight 99.3 kg (219 lb) 08/07/2014 11:58 AM EST Height 165.1 cm (5' 5 ) 08/07/2014 11:58 AM EST Body Mass Index 36.44 08/07/2014 11:58 AM EST Plan of Treatment Health Maintenance Due Date Last Done Comments Hepatitis C Screening 1945 Tdap/Td Vaccine >11 yo (1 - Tdap) 1964 Pneumococcal Vaccines >50 yo (1 of 1 - PCV) 1995 Shingles (Shingrix) (1 of 2) 1995 Osteoporosis Screening 2010 Diabetic Creatinine Level 08/07/2014 Diabetic Eye Exam 08/07/2014 Diabetic Foot Exam 08/07/2014 Diabetic Hemoglobin A1C 08/07/2014 Diabetic Presence of Statin 08/07/2014 Diabetic Urine Microalbumin 08/07/2014 RSV 50+ and (1 - 1 -dose 75+ series) 2020 Annual SDOH Screening 09/26/2024 Influenza Vaccine (#1) 2025 Haemophilus Influenzae Type B (Hib) Vaccine Aged Out No longer eligible b ased on patient's age to complete this topic Hepatitis A (HepA) Vaccine Aged Out N o longer eligible based on patient's age to complete this topic Hepatitis B (HepB) Vaccine Aged Out N o longer eligible based on patient's age to complete this topic Meningococcal ACWY Aged Out No longer eligible based on patient's age to complete this topic Polio (IPV) Aged Out No longer eligi ble based on patient's age to complete this topic Rotavirus (RV) Vaccine Aged Out No lo nger eligible based on patient's age to complete this topic [place] [address] SUPPLEMENT Care Teams Airline Pilot/First Officer Relationship Specialty Start Date End Date Rosina Blanco APRN [address] [place] [address] PCP - General Nurse Practitioner 05/20/14
--- NOTE | 2025-09-13 15:56 | HMH.EDGENADL ---
Discharge Plan Disposition Patient Disposition: Home, Self-Care Prescriptions Prescriptions: New ondansetron 4 mg tablet,disintegrating 4 mg PO Q6H PRN (Reason: nausea and vomiting) Qty: 12 0RF No Action celecoxib 200 mg capsule 200 mg PO DAILY potassium chloride 10 mEq tablet extended release 10 meq PO BID levothyroxine 88 mcg tablet 88 mcg PO QAM ropinirole 0.5 mg tablet 0.25 - 0.5 mg PO QPM PRN lisinopril 5 mg tablet 5 mg PO DAILY hydrochlorothiazide 25 mg tablet 25 mg PO DAILY albuterol sulfate 90 mcg/actuation HFA aerosol inhaler 2 puff inhalation Q4H PRN metformin 750 mg tablet extended release 24 hr 750 mg PO DAILY rosuvastatin 10 mg tablet 10 mg PO DAILY Referrals Follow up/Referrals: Provider,Referral, MD [Primary Care Provider, Medical] - See instructions Activity Restrictions/Add. Instructions Additional Instructions/Restrictions: You likely have a viral infection causing your symptoms. Continue to hydrate well by drinking plenty of fluids. I am prescribing Zofran to help with your nausea and vomiting. Follow-up with your primary care doctor if you have prolonged symptoms greater than a week. If you develop any new or worsening symptoms, or if you become concerned for your help for any reason, return to the emergency department for evaluation. Clinical Impressions Clinical Impression: Nausea vomiting and diarrhea Instructions Patient Instructions: DI for Diarrhea and Traveler's Diarrhea in Adults, DI for Diarrhea and Traveler's Diarrhea in Children, DI for Nausea in Adults, DI for Nausea in Children Print Language Print Language: Serbian Discharge ED Provider: Jeramy Bowen General Adult HPI General Chief complaint: Nausea/Vomiting/Diarrhea Stated complaint: Diarrhea,LBP,Vomiting Time Seen by Provider: 09/13/25 15:47 Mode of Arrival: Ambulatory Source of Information: Patient Description of Symptoms (Recalled from ER Triage Doc. by RN): Patient reports traveling up to spend time with family when she started to have diarrhea and vomiting. States she called her daughter who is a [employer] back home requesting her to prescribe her something. States her daughter refused to prescribe her something stating she didn't know what was wrong with her. States she went to the [facility] this morning and that her BP was low at 92 systolic. States her normal systolic is 110. Came to the ER today stating that she thinks she maybe dehydrated. History of Present Illness HPI narrative: Yesy Santana is a 79y female with a past medical history of diabetes mellitus and hypothyroidism who presents to the emergency department for complaints of nausea, vomiting and diarrhea. Patient states that starting yesterday, she has had multiple episodes of watery diarrhea that is nonbloody. She states that she has also felt nauseated and has had 5 episodes of nonbloody bloody nonbilious vomiting. She denies any chest pain, shortness of breath or abdominal pain. She denies any dysuria or hematuria. She spoke to family member who is a nurse practitioner and was told to go to an urgent treatment center. At the urgent treatment center, she states that her blood pressure was low with systolic in the 90s and repeat with systolic at 101 and was told to come to the emergency department for possible dehydration. Patient states that her blood pressure normally runs in the 110-120 range systolic. Initial blood pressure here is 132/65. Related Data Home Medications ?Medication ?Instructions ?Recorded ?Confirmed albuterol sulfate 90 mcg/actuation 2 puff inhalation Q4H PRN 09/13/25 09/13/25 aerosol inhaler celecoxib 200 mg capsule 200 mg PO DAILY 09/13/25 09/13/25 hydrochlorothiazide 25 mg tablet 25 mg PO DAILY 09/13/25 09/13/25 levothyroxine 88 mcg tablet 88 mcg PO QAM 09/13/25 09/13/25 lisinopril 5 mg tablet 5 mg PO DAILY 09/13/25 09/13/25 metformin 750 mg tablet,extended 750 mg PO DAILY 09/13/25 09/13/25 release 24 hr potassium chloride 10 mEq 10 meq PO BID 09/13/25 09/13/25 tablet,extended release ropinirole 0.5 mg tablet 0.25 - 0.5 mg PO QPM PRN 09/13/25 09/13/25 rosuvastatin 10 mg tablet 10 mg PO DAILY 09/13/25 09/13/25 Previous Rx's ?Medication ?Instructions ?Recorded ondansetron 4 mg disintegrating 4 mg PO Q6H PRN nausea and 09/13/25 tablet vomiting #12 tabs Allergies Allergy/AdvReac Type Severity Reaction Status Date / Time No Known Allergies Allergy Verified 09/13/25 14:53 [facility] Disclaimer: The information contained in this section may have been updated after the patient was seen, as this information can be updated by other users. Social History (Updated 09/13/25 @ 17:40 by SWATHI Perez) Smoking Status: Never smoker alcohol intake: never current occupational status: retired Travel in the last 8 weeks?: Inside the [place] Have you lived/traveled outside [place] in past 30 days?: No Contact w/someone who lives/traveled outside [place] past 30 days?: No Exposure to someone with infectious disease in past 14 days?: No Do you have a fever (greater than 100.4 F or 38 C)?: No Have you tested positive for COVID-19?: No Exposed to someone with COVID-19 in past 14 days?: No Do you have a sore throat?: No Do you have a cough?: No Do you have any weakness?: No Do you have any diarrhea?: Yes Are you experiencing any unusual bleeding?: No Do you have any muscle aches/pain?: No Do you have any abdominal pain?: No Are you experiencing loss of taste or smell?: No ROS Obtained: Yes Systems reviewed as appropriate & no additional complaints except as documented Physical Exam General General appearance: alert and in no apparent distress Head Head exam: atraumatic Eye Eye exam: Present normal appearance ENT ENT exam: Present normal external ear exam Neck Neck exam: Present full ROM Chest Chest inspection: Present symmetric chest wall rise Respiratory Respiratory exam: Present normal lung sounds bilaterally; Absent respiratory distress Cardiovascular Cardiovascular exam: Present regular rate and normal rhythm Abdominal Exam Abdominal exam: Present soft; Absent tenderness, guarding or rigidity Extremities Exam Extremities exam: Present normal inspection Back Exam Back exam: Present normal inspection Neurological Exam Neurological exam: Present alert and oriented X3 Psychiatric Psychiatric exam: Present normal affect Skin Skin exam: Present warm and dry Medical Decision Making Medical Records Screening: Per USPSTF and CDC recommendations, given the prevalence of disease in our region, it is our hospital?s policy to screen for HIV and viral Hepatitis for all patients aged 18 and over and those with ongoing risk factors. Constantino Inquiry Pt receiving controlled substance: No Vital Signs: 09/13/25 15:28 09/13/25 15:31 09/13/25 16:01 Temperature 98.2 F Temperature Source Oral Pulse Rate 78 75 Pulse Rate [Radial] 81 Respiratory Rate Blood Pressure 121/65 110/45 L Blood Pressure [Right Arm] 132/65 Blood Pressure Mean 86 67 Blood Pressure Mean [Right Arm] 87 Blood Pressure Source [Right Arm] Automatic Cuff Blood Pressure Position [Right Arm] Sitting 02 Sat by Pulse Oximetry 98 Oxygen Delivery Method Room Air 09/13/25 16:30 09/13/25 17:15 09/13/25 17:30 Temperature Temperature Source Pulse Rate Pulse Rate [Radial] Respiratory Rate 15 16 16 Blood Pressure 101/77 L 105/49 L 105/54 L Blood Pressure [Right Arm] Blood Pressure Mean Blood Pressure Mean [Right Arm] Blood Pressure Source [Right Arm] Blood Pressure Position [Right Arm] 02 Sat by Pulse Oximetry Oxygen Delivery Method 09/13/25 18:00 09/13/25 18:30 Temperature Temperature Source Pulse Rate Pulse Rate [Radial] Respiratory Rate 16 15 Blood Pressure 108/66 L 101/63 L Blood Pressure [Right Arm] Blood Pressure Mean Blood Pressure Mean [Right Arm] Blood Pressure Source [Right Arm] Blood Pressure Position [Right Arm] 02 Sat by Pulse Oximetry Oxygen Delivery Method Lab Data Lab Results 09/13/25 16:01: WBC 6.5, RBC 3.74 L, Hgb 11.7 L, Hct 34.9 L, MCV 93.3, MCH 31.3 H, MCHC 33.5, RDW 12.5, Plt Count 164, MPV 8.9, Neut % (Auto) 54.6, Lymph % (Auto) 32.8, Bulloch % (Auto) 10.2 H, Eos % (Auto) 2.0, Baso % (Auto) 0.2, Neut # (Auto) 3.6, Lymph # (Auto) 2.1, Bulloch # (Auto) 0.7, Eos # (Auto) 0.1, Baso # (Auto) 0.0, Sodium 134 L, Potassium 3.5, Chloride 100, Carbon Dioxide 29, Anion Gap 8.5, BUN 15, Creatinine 0.80, Estimated Creat Clear 62, Estimated GFR 69, Est GFR ( Amer) 84, Glucose 148 H, Calcium 8.7, Total Bilirubin 1.3, AST 42 H, ALT 29, Alkaline Phosphatase 83, Total Protein 6.8, Albumin 3.8, Globulin 3.0, Albumin/Globulin Ratio 1.3, Lipase 20 L 09/13/25 18:53: Urine Color Yellow, Urine Appearance Clear, Urine pH 6.0, Ur Specific Valdez 1.015, Urine Protein Negative, Urine Glucose (UA) Negative, Urine Ketones Negative, Urine Blood Trace-i, Urine Nitrate Negative, Urine Bilirubin Negative, Urine Urobilinogen 0.2, Ur Leukocyte Esterase Negative, Urine RBC 5-10, Urine WBC 3-5, Ur Squamous Epith Cells 3-5, Urine Bacteria 1+, Urine Mucus 1+ 09/13/25 16:01 09/13/25 16:01 Orders (Tests/Meds): ED MEDICATIONS Discontinued Medications Generic Name Dose Route Start Last Admin Trade Name Groverq PRN Reason Stop Dose Admin Lactated Ringer's 1,000 mls @ 999 mls/hr 09/13/25 15:54 09/13/25 17:18 Lactated Ringer's 1000 Ml Bag IV 09/13/25 16:54 Infused .Q1H1M ONE Infusion Ondansetron HCl 4 mg 09/13/25 15:54 09/13/25 16:11 Ondansetron 4mg/2ml Vial IV 09/13/25 15:55 4 mg ONCE ONE Administration ORDERS Category Date Time Status CBC w/Auto Diff [Complete Blood Count Auto Diff] Stat Lab 09/13/25 16:01 Completed CMP [Comprehensive Metabolic Panel] Stat Lab 09/13/25 16:01 Completed HIV Combo Stat Lab 09/13/25 15:41 Ordered Hepatitis C Ab Qual. W/ RFX Stat Lab 09/13/25 15:41 Ordered Lipase Stat Lab 09/13/25 16:01 Completed UA [Urinalysis and Microscopic] Stat Lab 09/13/25 18:53 Completed Medical Decision Narrative: Yesy Santana is a 79y female with a past medical history of diabetes mellitus and hypothyroidism who presents to the emergency department for complaints of nausea, vomiting and diarrhea. Patient states that starting yesterday, she has had multiple episodes of watery diarrhea that is nonbloody. She states that she has also felt nauseated and has had 5 episodes of nonbloody bloody nonbilious vomiting. She denies any chest pain, shortness of breath or abdominal pain. She denies any dysuria or hematuria. She spoke to family member who is a nurse practitioner and was told to go to an urgent treatment center. At the urgent treatment center, she states that her blood pressure was low with systolic in the 90s and repeat with systolic at 101 and was told to come to the emergency department for possible dehydration. Patient states that her blood pressure normally runs in the 110-120 range systolic. Initial blood pressure here is 132/65. On arrival, patient is hemodynamically stable, afebrile, breathing comfortably on room air with appropriate oxygen saturation. Physical exam, as stated above, revealed an overall well-appearing female in no distress. She has moist mucous membranes. Abdomen is soft, nontender nondistended. Cardiopulmonary exam without murmur or rub. No wheezing, rales or rhonchi. Differential diagnosis includes, but is not limited to: Viral gastroenteritis, acute pancreatitis, urinary tract infection, dehydration, electrolyte derangement, metabolic derangement, among others. The most morbid conditions were considered and workup was based on these. CT imaging of the abdomen pelvis was considered, however given patient is not had any abdominal pain and has a benign abdominal exam, do not feel that this is indicated at this time. Will obtain hematologic labs, urine studies and administer 1 L lactated Ringer's as well as 4 mg of IV Zofran. Patient workup shows no leukocytosis, stable hemoglobin at 11.7 patient's workup shows no leukocytosis, mildly low hemoglobin of 11.7, hematocrit 34.9, mildly low sodium 134 but electrolytes within normal limits and nonactionable. No kidney injury. Mildly elevated AST of 42 but liver enzymes and bilirubin otherwise within normal limits. Lipase normal at 20. Urinalysis without blood or evidence showed 5-10 red blood cells and only 3-5 white blood cells. 1+ bacteria but leukocyte esterase and nitrate negative. Do not feel that this is labor relations representative of urinary tract infection. On reassessment, patient has remained stable. She is sleeping comfortably. Feel that she likely has a viral infection causing gastroenteritis. Have encouraged her to follow with her primary care doctor if symptoms persist longer than 7 days and she may need stool testing at that point. Will prescribe Zofran to help with nausea and vomiting. All questions were answered. She demonstrated understanding and was in agreement this plan. She was then discharged from the emergency department in stable condition. Critical Care Critical Care Time Critical Care Time: No
[2025-09-13 16:07] LABS: Hematocrit 34.9 % (37.0-47.0); Hemoglobin 11.7 g/dL (12.2-16.2); Immature Granulocytes % 0.2 %; Mean Corpuscular HGB Conc 33.5 g/dL (31.8-35.4); Mean Corpuscular Hemoglobin 31.3 pg (27.0-31.2); Mean Corpuscular Volume 93.3 fl (81-99); Nucleated Red Blood Cells % 0 %; Platelet Count 164 K/mm3 (142-424); Red Blood Count 3.74 M/mm3 (4.20-5.40); Red Cell Distribution Width-SD 42.8 fL; White Blood Count 6.5 K/mm3 (4.8-10.8)
[2025-09-13] MEDS: ONDANSETRON 4MG/2ML VIAL 4 MG IV (16:11)
[2025-09-13] MEDS: LACTATED RINGERS 1000ML 1,000 ML 999 ML IV (16:11)
[2025-09-13 16:26] LABS: Alanine Aminotransferase 29 U/L (12-78); Albumin Level 3.8 g/dl (3.5-5.0); Albumin/Globulin Ratio 1.3 (1.1-1.8); Alkaline Phosphatase 83 U/L (38-126); Anion Gap 8.5 mEq/L (5-15); Aspartate Amino Transferase 42 U/L (14-36); Bilirubin,Total 1.3 mg/dl (0.2-1.3); Blood Urea Nitrogen 15 mg/dl (7-17); Calcium 8.7 mg/dl (8.4-10.2); Carbon Dioxide 29 mmol/L (22.0-30.0); Chloride 100 mmol/L (98-107); Creatinine Clearance Estimated 62 mL/min (50-200); Creatinine,Serum 0.80 mg/dl (0.52-1.04); Estimated Glomerular Filt Rate 69 ml/min (>60); GFR (African American) 84 ML/MIN (>60); Globulin 3.0 g/dL (1.3-3.2); Glucose 148 mg/dl (74-100); Lipase 20 U/L (23-300); Potassium 3.5 mmoL/L (3.5-5.1); Sodium 134 mmol/L (136-145); Total Protein,Serum 6.8 g/dl (6.3-8.2)
[2025-09-13 18:57] LABS: Microscopic, Urine URINE MICROSCOPIC (MICROSCOPIC)
[2025-09-13 19:21] LABS: Bilirubin,Urine Negative (Negative); Color,Urine YELLOW (Yellow); Glucose,Urine (UA) Negative (Negative); Ketones,Urine Negative (Negative); Leukocyte Esterase,Urine Negative (Negative); PH,Urine 6.0 (5.0-8.5); Protein,Urine Negative (Negative); Specific Gravity, Urine 1.015 (1.005-1.030); Urobilinogen,Urine 0.2 EU/dl (0.2)
[2025-09-13 19:29] LABS: Bacteria,Urine 1+ /lpf; Mucus,Urine 1+ /lpf
== END 2025-09-13 20:01 | disposition home or self-care (01) ==
PROVIDERS: Emergency Provider Student in an Organized Health Care Education/Training Program
DX: R11.2 Nausea with vomiting, unspecified (principal); R19.7 Diarrhea, unspecified; E87.1 Hypo-osmolality and hyponatremia
CPT/HCPCS: 80053; 81001; 83690; 85025; 96361; 96374; 99284; 99285; J2405; J7120